=== PATIENT | female | born 1965 | race Caucasian/White ===

== ENCOUNTER 2017-07-12 20:43 | Emergency (ER) | payer MEDICAID ==
[~2017-07-12] VITALS: Ht 165.1 cm; Wt 64.5 kg
[~2017-07-12 20:43] MED LIST: ALBU8.5H5 INH; CLON2TAB16 PO; FLUT1DIS3 INH; HYDR2TAB29 PO; OMEP20TA62 PO; OXYC20TA2 PO; PANT40TA3 PO; TIOT18CA INH
[2017-07-12 20:47] VITALS: BP 112/65
[2017-07-12] MEDS ORDERED: IBUPROFEN 200 MG TABLET ONE (21:03)
[2017-07-12] MEDS ORDERED: IBUPROFEN 200 MG TABLET PO ONE (21:30)
[2017-07-12] MEDS ORDERED: HYDROcodone/APAP 5/325 TABLET ONE (22:14)
[2017-07-12] MEDS ORDERED: HYDROcodone/APAP 5/325 TABLET PO ONE (22:30)
== END 2017-07-12 22:43 | disposition home or self-care (01) ==
LOC: ED 21:00
DX: S62.367A Nondisplaced fracture of neck of fifth metacarpal bone, left hand, initial encounter for closed fracture (principal); J44.9 Chronic obstructive pulmonary disease, unspecified; W01.0XXA Fall on same level from slipping, tripping and stumbling without subsequent striking against object, initial encounter; Y93.89 Activity, other specified; Y99.8 Other external cause status; Y92.89 Other specified places as the place of occurrence of the external cause
CPT/HCPCS: 29105; 99284

== ENCOUNTER 2017-10-24 16:24 | Inpatient (IN) | payer MEDICAID ==
[~2017-10-24] VITALS: Ht 162.6 cm; Wt 65.1 kg
[2017-10-24] MEDS ORDERED: ACETAMINOPHEN 325 MG TABLET PO ONE (17:00)
[2017-10-24 17:20] LABS: MICROSCOPIC INDICATED
[2017-10-24 17:22] LABS: CULTURE INDICATED? YES
[2017-10-24 17:26] LABS: ALANINE AMINOTRANSFERASE 37 U/L (12-78); ANION GAP 6 mmol/L (5-15); CALCIUM 8.7 mg/dL (8.5-10.1); CHLORIDE 110 mmol/L (98-107); CREATININE 0.59 mg/dL (0.55-1.02)
[2017-10-24 17:30] LABS: BASOPHILS # (AUTO) 0.01 x10^3/uL (0-0.1); BASOPHILS % (AUTO) 0 % (0-1); EOSINOPHILS # (AUTO) 0.15 x10^3/uL (0-0.4); EOSINOPHILS % (AUTO) 5 % (1-7); LYMPHOCYTES # (AUTO) 0.89 x10^3/uL (1-3.4); LYMPHOCYTES % (AUTO) 26 % (22-44); MD SCAN; MEAN CORPUSCULAR HEMOGLOBIN 28.6 pg (27.0-34.8); MEAN CORPUSCULAR HGB CONC 33.5 g/dL (32.4-35.8); MEAN CORPUSCULAR VOLUME 85.3 fL (80-100); MEAN PLATELET VOLUME 9.6 fL (7.4-10.4); MONOCYTES % (AUTO) 12 % (2-9); NEUTROPHILS # (AUTO) 1.93 x10^3/uL (1.8-6.8); NEUTROPHILS % (AUTO) 57 % (42-75); PLATELET COUNT 81 x10^3/uL (130-400); RED BLOOD COUNT 4.39 x10^6/uL (3.82-5.3); RED CELL DISTRIBUTION WIDTH 16.7 % (9.6-15.2)
[2017-10-24 17:31] LABS: ALKALINE PHOSPHATASE 85 U/L (45-117); BILIRUBIN,TOTAL 1.6 mg/dL (0.2-1.0); CREATINE KINASE, TOTAL 135 U/L (26-192); T4 (THYROXINE) 9.8 mcg/dL (4.8-13.9); TOTAL PROTEIN 6.8 g/dL (6.4-8.2); TROPONIN I < 0.015 ng/mL (0.000-0.045)
[2017-10-24] MEDS ORDERED: ACETAMINOPHEN 325 MG TABLET ONE (17:39)
[2017-10-24] MEDS ORDERED: CEFTRIAXONE PMX 1GM/50ML 50 ML IV ONE (18:00)
[2017-10-24] MEDS ORDERED: CEFTRIAXONE PMX 1GM/50ML 50 ML ONE (18:30)
[2017-10-24] MEDS ORDERED: hydrALAzine 20 MG/ML, 1ML IVPush PRN (19:00)
[2017-10-24] MEDS ORDERED: ONDANSETRON ODT 4 MG PO PRN (19:00)
[2017-10-24 19:07] VITALS: BP 108/62
[2017-10-24] MEDS: ACETAMINOPHEN 325 MG TABLET PO PRN (22:42)
[2017-10-25] MEDS ORDERED: ALBUTEROL SULFATE 2.5 MG/3 ML NPPB PRN (01:00)
[2017-10-25 01:32] LABS: AMPHETAMINE SCREEN, URINE Negative (Negative); BARBITURATE SCREEN, URINE Negative (Negative); BENZODIAZEPINE SCREEN, URINE Negative (Negative); CANNABINOID SCREEN, URINE Negative (Negative); COCAINE SCREEN, URINE Negative (Negative); METHADONE SCREEN, URINE Negative (Negative); OPIATE SCREEN, URINE Negative (Negative)
[2017-10-25 02:09] VITALS: BP 110/62
[2017-10-25] MEDS: DIPHENHYDRAMINE 25 MG CAPSULE PO PRN (03:29)
[2017-10-25 07:20] VITALS: BP 97/61
[2017-10-25] MEDS: ACETAMINOPHEN 325 MG TABLET PO PRN (13:12)
[2017-10-25] MEDS ORDERED: GADOBUTROL 7.5 MMOL/7.5 ML PFS ONE (14:04)
[2017-10-25 14:23] VITALS: BP 106/65
[2017-10-25 19:33] VITALS: BP 109/61
[2017-10-25] MEDS: CEFTRIAXONE PMX 1GM/50ML 50 ML IV SCH (21:18)
[2017-10-26 02:00] VITALS: BP 107/66
[2017-10-26 06:49] VITALS: BP 106/51
[2017-10-26 14:25] VITALS: BP 108/66
[2017-10-26] MEDS: OXYcodone IR 5MG TABLET PO PRN ×2 (15:04→20:31)
[2017-10-26 15:19] LABS: INTERNATIONAL NORMALIZED RATIO 1.1 (0.93-1.1); PROTHROMBIN TIME 11.4 Seconds (9.6-11.5)
[2017-10-26] MEDS: METHOCARBAMOL 750 MG TABLET PO SCH ×2 (17:55→20:31)
[2017-10-26 19:50] VITALS: BP 111/63
[2017-10-26] MEDS: DIPHENHYDRAMINE 25 MG CAPSULE PO PRN (20:31)
[2017-10-26] MEDS: CEFTRIAXONE PMX 1GM/50ML 50 ML IV SCH (20:31)
[2017-10-27] VITALS (10 sets, daily range): BP systolic 94–113; BP diastolic 52–64
[2017-10-27] MEDS: OXYcodone IR 5MG TABLET PO PRN ×4 (05:12→19:45)
[2017-10-27] MEDS: METHOCARBAMOL 750 MG TABLET PO SCH ×4 (05:12→21:05)
[2017-10-27] MEDS: METOPROLOL TARTRATE 25 MG TABLET PO SCH ×2 (09:00→16:53)
[2017-10-27 12:45] LABS: MEAN CORPUSCULAR HEMOGLOBIN 28.1 pg (27.0-34.8); MEAN CORPUSCULAR HGB CONC 32.9 g/dL (32.4-35.8); MEAN CORPUSCULAR VOLUME 85.5 fL (80-100); MEAN PLATELET VOLUME 9.3 fL (7.4-10.4); PLATELET COUNT 102 x10^3/uL (130-400); RED BLOOD COUNT 3.58 x10^6/uL (3.82-5.3); RED CELL DISTRIBUTION WIDTH 17.2 % (9.6-15.2)
[2017-10-27 13:13] LABS: BASOPHILS # (AUTO) 0.02 x10^3/uL (0-0.1); BASOPHILS % (AUTO) 1 % (0-1); EOSINOPHILS % (AUTO) 6 % (1-7); LYMPHOCYTES # (AUTO) 0.76 x10^3/uL (1-3.4); LYMPHOCYTES % (AUTO) 22 % (22-44); MD SCAN; MONOCYTES # (AUTO) 0.42 x10^3/uL (0.2-0.8); MONOCYTES % (AUTO) 12 % (2-9); NEUTROPHILS # (AUTO) 2.03 x10^3/uL (1.8-6.8); NEUTROPHILS % (AUTO) 59 % (42-75)
[2017-10-27] MEDS: CEFTRIAXONE PMX 1GM/50ML 50 ML IV SCH (21:05)
[2017-10-28] VITALS (7 sets, daily range): BP systolic 93–101; BP diastolic 50–65
[2017-10-28] MEDS: OXYcodone IR 5MG TABLET PO PRN ×6 (00:14→23:48)
[2017-10-28 05:09] LABS: BASOPHILS # (AUTO) 0.01 x10^3/uL (0-0.1); BASOPHILS % (AUTO) 0 % (0-1); EOSINOPHILS # (AUTO) 0.23 x10^3/uL (0-0.4); EOSINOPHILS % (AUTO) 6 % (1-7); LYMPHOCYTES # (AUTO) 0.72 x10^3/uL (1-3.4); LYMPHOCYTES % (AUTO) 19 % (22-44); MD NO; MEAN CORPUSCULAR HEMOGLOBIN 27.8 pg (27.0-34.8); MEAN CORPUSCULAR HGB CONC 32.7 g/dL (32.4-35.8); MEAN CORPUSCULAR VOLUME 84.9 fL (80-100); MEAN PLATELET VOLUME 8.7 fL (7.4-10.4); MONOCYTES # (AUTO) 0.44 x10^3/uL (0.2-0.8); MONOCYTES % (AUTO) 12 % (2-9); NEUTROPHILS % (AUTO) 63 % (42-75); PLATELET COUNT 115 x10^3/uL (130-400); RED BLOOD COUNT 3.92 x10^6/uL (3.82-5.3); RED CELL DISTRIBUTION WIDTH 17.1 % (9.6-15.2)
[2017-10-28] MEDS: METOPROLOL TARTRATE 25 MG TABLET PO SCH ×2 (05:18→17:53)
[2017-10-28] MEDS: METHOCARBAMOL 750 MG TABLET PO SCH ×4 (05:18→20:00)
[2017-10-28 05:27] LABS: ALBUMIN 3.1 g/dL (3.4-5.0); ANION GAP 8 mmol/L (5-15); CALCIUM 8.6 mg/dL (8.5-10.1); CHLORIDE 109 mmol/L (98-107)
[2017-10-28 05:32] LABS: ALANINE AMINOTRANSFERASE 35 U/L (12-78); ALKALINE PHOSPHATASE 103 U/L (45-117); BILIRUBIN,TOTAL 1.1 mg/dL (0.2-1.0); CREATININE 0.56 mg/dL (0.55-1.02); TOTAL PROTEIN 6.9 g/dL (6.4-8.2)
[2017-10-29] VITALS (9 sets, daily range): BP systolic 87–116; BP diastolic 42–68
[2017-10-29] MEDS: OXYcodone IR 5MG TABLET PO PRN ×4 (05:43→20:06)
[2017-10-29 05:48] LABS: MEAN CORPUSCULAR HEMOGLOBIN 28.4 pg (27.0-34.8); MEAN CORPUSCULAR HGB CONC 33.4 g/dL (32.4-35.8); MEAN CORPUSCULAR VOLUME 85.1 fL (80-100); MEAN PLATELET VOLUME 9.4 fL (7.4-10.4); PLATELET COUNT 99 x10^3/uL (130-400); RED CELL DISTRIBUTION WIDTH 16.7 % (9.6-15.2)
[2017-10-29] MEDS: METOPROLOL TARTRATE 25 MG TABLET PO SCH ×2 (05:49→17:25)
[2017-10-29] MEDS: METHOCARBAMOL 750 MG TABLET PO SCH ×4 (05:49→20:06)
[2017-10-29 05:52] LABS: ALBUMIN 2.7 g/dL (3.4-5.0); ANION GAP 7 mmol/L (5-15); CALCIUM 8.1 mg/dL (8.5-10.1); CHLORIDE 110 mmol/L (98-107)
[2017-10-29 05:55] LABS: ALANINE AMINOTRANSFERASE 34 U/L (12-78); ALKALINE PHOSPHATASE 98 U/L (45-117); BILIRUBIN,TOTAL 1.1 mg/dL (0.2-1.0); CREATININE 0.52 mg/dL (0.55-1.02); TOTAL PROTEIN 6.1 g/dL (6.4-8.2)
[2017-10-29 06:14] LABS: BASOPHILS # (AUTO) 0.01 x10^3/uL (0-0.1); BASOPHILS % (AUTO) 1 % (0-1); EOSINOPHILS % (AUTO) 8 % (1-7); LYMPHOCYTES # (AUTO) 0.55 x10^3/uL (1-3.4); LYMPHOCYTES % (AUTO) 22 % (22-44); MD SCAN; MONOCYTES # (AUTO) 0.36 x10^3/uL (0.2-0.8); MONOCYTES % (AUTO) 14 % (2-9); NEUTROPHILS # (AUTO) 1.37 x10^3/uL (1.8-6.8); NEUTROPHILS % (AUTO) 55 % (42-75)
[2017-10-30] VITALS (13 sets, daily range): BP systolic 94–127; BP diastolic 50–79
[2017-10-30] MEDS: OXYcodone IR 5MG TABLET PO PRN ×4 (00:34→13:07)
[2017-10-30 03:14] LABS: BASOPHILS # (AUTO) 0.01 x10^3/uL (0-0.1); BASOPHILS % (AUTO) 0 % (0-1); EOSINOPHILS % (AUTO) 6 % (1-7); LYMPHOCYTES # (AUTO) 0.71 x10^3/uL (1-3.4); LYMPHOCYTES % (AUTO) 21 % (22-44); MD NO; MEAN CORPUSCULAR HGB CONC 34.1 g/dL (32.4-35.8); MEAN CORPUSCULAR VOLUME 84.9 fL (80-100); MEAN PLATELET VOLUME 8.6 fL (7.4-10.4); MONOCYTES # (AUTO) 0.42 x10^3/uL (0.2-0.8); MONOCYTES % (AUTO) 13 % (2-9); NEUTROPHILS # (AUTO) 1.99 x10^3/uL (1.8-6.8); NEUTROPHILS % (AUTO) 60 % (42-75); PLATELET COUNT 119 x10^3/uL (130-400); RED BLOOD COUNT 3.42 x10^6/uL (3.82-5.3)
[2017-10-30 05:22] LABS: BASOPHILS # (AUTO) 0.02 x10^3/uL (0-0.1); BASOPHILS % (AUTO) 1 % (0-1); EOSINOPHILS # (AUTO) 0.21 x10^3/uL (0-0.4); EOSINOPHILS % (AUTO) 7 % (1-7); LYMPHOCYTES # (AUTO) 0.69 x10^3/uL (1-3.4); LYMPHOCYTES % (AUTO) 23 % (22-44); MD NO; MEAN CORPUSCULAR HGB CONC 34.5 g/dL (32.4-35.8); MEAN CORPUSCULAR VOLUME 84.3 fL (80-100); MEAN PLATELET VOLUME 8.3 fL (7.4-10.4); MONOCYTES # (AUTO) 0.38 x10^3/uL (0.2-0.8); MONOCYTES % (AUTO) 12 % (2-9); NEUTROPHILS # (AUTO) 1.76 x10^3/uL (1.8-6.8); NEUTROPHILS % (AUTO) 58 % (42-75); PLATELET COUNT 113 x10^3/uL (130-400); RED BLOOD COUNT 3.44 x10^6/uL (3.82-5.3); RED CELL DISTRIBUTION WIDTH 17.1 % (9.6-15.2)
[2017-10-30 05:32] LABS: CHLORIDE 109 mmol/L (98-107)
[2017-10-30 05:40] LABS: ALANINE AMINOTRANSFERASE 39 U/L (12-78); ALKALINE PHOSPHATASE 102 U/L (45-117); ANION GAP 7 mmol/L (5-15); BILIRUBIN,TOTAL 1.6 mg/dL (0.2-1.0); CALCIUM 8.3 mg/dL (8.5-10.1); TOTAL PROTEIN 6.6 g/dL (6.4-8.2)
[2017-10-30] MEDS: METOPROLOL TARTRATE 25 MG TABLET PO SCH ×2 (06:04→18:00)
[2017-10-30] MEDS: METHOCARBAMOL 750 MG TABLET PO SCH ×4 (06:04→22:11)
[2017-10-30] MEDS ORDERED: PHARMACY MAY ADJ FOR RENAL FX MC PRN (08:00)
[2017-10-30] MEDS: OXYcodone/APAP 5/325MG TABLET PO PRN (14:45)
[2017-10-30] MEDS ORDERED: CYCLOBENZAPRINE 10 MG TABLET PO PRN ×2 (15:00→18:00)
[2017-10-30] MEDS ORDERED: LABETALOL 5MG/ML, 20ML IVPush PRN ×2 (15:00→18:00)
[2017-10-30] MEDS ORDERED: HYDROcodone/APAP 5/325 TABLET PO PRN ×2 (15:00→18:00)
[2017-10-30] MEDS ORDERED: PROPOFOL 100 ML ONE (16:26)
[2017-10-30] MEDS ORDERED: FENTANYL PF 250 MCG/5ML ONE (16:29)
[2017-10-30] MEDS ORDERED: BUPIVACAINE/PF 0.5% ONE (16:42)
[2017-10-30] MEDS ORDERED: THROMBIN 5,000 UNIT VIAL TP ONE (16:42)
[2017-10-30] MEDS ORDERED: BACITRACIN 50,000 UNIT ONE (16:42)
[2017-10-30] MEDS ORDERED: EPINEPHRINE 1 MG/ML, 1ML ONE (16:42)
[2017-10-30] MEDS ORDERED: FAMOTIDINE 20 MG TABLET ONE (16:43)
[2017-10-30] MEDS ORDERED: ONDANSETRON ODT 8 MG ONE (16:43)
[2017-10-30] MEDS ORDERED: GABAPENTIN 300 MG CAPSULE ONE (16:43)
[2017-10-30] MEDS ORDERED: OxyconTIN ER 10 MG TAB.ER ONE (16:43)
[2017-10-30] MEDS ORDERED: EPHEDRINE 50 MG/ML, 1ML ONE (17:15)
[2017-10-30] MEDS ORDERED: DEXAMETHASONE 4 MG/ML, 1ML ONE ×3 (17:22→17:23)
[2017-10-30] MEDS ORDERED: CEFAZOLIN 1,000 MG ONE ×2 (17:27)
[2017-10-30] MEDS ORDERED: OXYcodone/APAP 5/325MG TABLET PO PRN (18:00)
[2017-10-30] MEDS ORDERED: ROCURONIUM 10MG/ML,5ML ONE (18:03)
[2017-10-30] MEDS ORDERED: METOPROLOL 1 MG/ML, 5ML ONE (18:03)
[2017-10-30] MEDS ORDERED: PROPOFOL 10 MG/ML, 20ML ONE ×2 (18:03→18:26)
[2017-10-30] MEDS ORDERED: METOCLOPRAMIDE 5 MG/ML, 2ML ONE (19:55)
[2017-10-30] MEDS ORDERED: FENTANYL PF 100 MCG/2ML IV PRN (20:30)
[2017-10-30] MEDS ORDERED: ONDANSETRON ODT 8 MG PO PRN (20:30)
[2017-10-30] MEDS ORDERED: OXYcodone 5 MG/5 ML ORAL.SOL UDC PO PRN (20:30)
[2017-10-30] MEDS ORDERED: MORPHINE SULFATE 4 MG/ML, 1ML IVPush PRN (20:30)
[2017-10-30] MEDS ORDERED: hydrALAzine 20 MG/ML, 1ML IV PRN (20:30)
[2017-10-30] MEDS ORDERED: LABETALOL 5MG/ML, 20ML IV PRN (20:30)
[2017-10-30] MEDS ORDERED: PROMETHAZINE 25 MG/ML, 1ML IV PRN (20:30)
[2017-10-30] MEDS ORDERED: HYDROmorphone 1 MG/ML, 1ML IV PRN (20:30)
[2017-10-30] MEDS ORDERED: MEPERIDINE/PF 25MG/0.5ML IVPush PRN (20:30)
[2017-10-30] MEDS ORDERED: FENTANYL PF 100 MCG/2ML ONE (20:31)
[2017-10-30] MEDS ORDERED: METHOCARBAMOL 750 MG TABLET ONE (20:31)
[2017-10-30] MEDS ORDERED: OXYcodone 5 MG/5 ML ORAL.SOL UDC ONE (22:03)
[2017-10-30] MEDS: DEXAMETHASONE 4 MG/ML, 1ML IVPush SCH (23:38)
[2017-10-31] MEDS: NS + 20MEQ KCL 1,000 ML IV SCH ×3 (00:33→20:40)
[2017-10-31] MEDS: CEFAZOLIN PMX 1GM/50ML 50 ML IVPB SCH ×2 (01:21→09:40)
[2017-10-31 03:46] VITALS: BP 101/58
[2017-10-31] MEDS: DEXAMETHASONE 4 MG/ML, 1ML IVPush SCH ×3 (05:03→23:02)
[2017-10-31 05:05] LABS: MEAN CORPUSCULAR HEMOGLOBIN 28.4 pg (27.0-34.8); MEAN CORPUSCULAR HGB CONC 33.4 g/dL (32.4-35.8); MEAN CORPUSCULAR VOLUME 84.9 fL (80-100); RED BLOOD COUNT 3.36 x10^6/uL (3.82-5.3); RED CELL DISTRIBUTION WIDTH 16.8 % (9.6-15.2)
[2017-10-31 05:06] LABS: ALBUMIN 2.8 g/dL (3.4-5.0); ANION GAP 7 mmol/L (5-15); CALCIUM 8.2 mg/dL (8.5-10.1); CHLORIDE 111 mmol/L (98-107); CREATININE 0.55 mg/dL (0.55-1.02)
[2017-10-31 05:31] VITALS: BP 98/56
[2017-10-31] MEDS: METHOCARBAMOL 750 MG TABLET PO SCH ×4 (05:31→23:02)
[2017-10-31] MEDS: METOPROLOL TARTRATE 25 MG TABLET PO SCH ×2 (05:32→18:31)
[2017-10-31 05:46] LABS: MD YES; MEAN PLATELET VOLUME 9.4 fL (7.4-10.4); PLATELET COUNT 96 x10^3/uL (130-400)
[2017-10-31 05:49] LABS: BAND#(MANUAL) 0.02 x10^3/uL; BANDS%(MANUAL) 1 % (0-7); BASOS#(MANUAL) 0.02 x10^3/uL (0-0.1); BASOS% (MANUAL) 1 % (0-1); LYMPH#(MANUAL) 0.18 x10^3/uL (1-3.4); LYMPHS% (MANUAL) 10 % (22-44); SEG#(MANUAL) 1.58 x10^3/uL (1.8-6.8); SEGS% (MANUAL) 88 % (42-75)
[2017-10-31 05:50] LABS: <PLATELET ESTIMATE> DECREASED; <PLT MORPHOLOGY> NORMAL PLT MORPH; ANISOCYTOSIS 1+
[2017-10-31 08:29] VITALS: BP 108/65
[2017-10-31] MEDS ORDERED: CEFAZOLIN PMX 1GM/50ML 50 ML ONE (09:36)
[2017-10-31] MEDS: OXYcodone/APAP 5/325MG TABLET PO PRN ×4 (09:40→23:02)
[2017-10-31 12:28] VITALS: BP 103/52
[2017-10-31] MEDS ORDERED: LORazepam 2 MG/ML, 1ML IVPush ONE (18:30)
[2017-10-31 18:38] VITALS: BP 126/62
[2017-10-31 21:08] LABS: MICROSCOPIC NOT IND
[2017-10-31 21:13] LABS: CULTURE INDICATED? NO
[2017-11-01 02:58] VITALS: BP 104/60
[2017-11-01] MEDS: OXYcodone/APAP 5/325MG TABLET PO PRN ×5 (03:14→21:26)
[2017-11-01 05:26] LABS: ALANINE AMINOTRANSFERASE 33 U/L (12-78); ANION GAP 6 mmol/L (5-15); CALCIUM 8.7 mg/dL (8.5-10.1); CHLORIDE 110 mmol/L (98-107)
[2017-11-01 05:29] LABS: ALKALINE PHOSPHATASE 81 U/L (45-117); BILIRUBIN,TOTAL 1.3 mg/dL (0.2-1.0); TOTAL PROTEIN 6.8 g/dL (6.4-8.2)
[2017-11-01 05:37] LABS: MEAN CORPUSCULAR HEMOGLOBIN 28.2 pg (27.0-34.8); MEAN CORPUSCULAR HGB CONC 32.7 g/dL (32.4-35.8); MEAN CORPUSCULAR VOLUME 86.3 fL (80-100); MEAN PLATELET VOLUME 10.7 fL (7.4-10.4); PLATELET COUNT 93 x10^3/uL (130-400); RED BLOOD COUNT 3.36 x10^6/uL (3.82-5.3); RED CELL DISTRIBUTION WIDTH 16.7 % (9.6-15.2)
[2017-11-01 06:12] LABS: BASOPHILS % (AUTO) 0 % (0-1); EOSINOPHILS % (AUTO) 0 % (1-7); LYMPHOCYTES # (AUTO) 0.44 x10^3/uL (1-3.4); LYMPHOCYTES % (AUTO) 8 % (22-44); MD SCAN; MONOCYTES # (AUTO) 0.25 x10^3/uL (0.2-0.8); MONOCYTES % (AUTO) 4 % (2-9); NEUTROPHILS # (AUTO) 4.91 x10^3/uL (1.8-6.8); NEUTROPHILS % (AUTO) 88 % (42-75)
[2017-11-01 06:52] VITALS: BP 115/65
[2017-11-01] MEDS: METOPROLOL TARTRATE 25 MG TABLET PO SCH ×2 (07:17→16:42)
[2017-11-01] MEDS: METHOCARBAMOL 750 MG TABLET PO SCH ×5 (07:18→21:26)
[2017-11-01] MEDS: DEXAMETHASONE 4 MG/ML, 1ML IVPush SCH (07:43)
[2017-11-01] MEDS: NS + 20MEQ KCL 1,000 ML IV SCH (10:00)
[2017-11-01 12:44] VITALS: BP 115/64
[2017-11-01 16:40] VITALS: BP 118/66
[2017-11-01 20:38] VITALS: BP 99/57
[2017-11-02 01:14] VITALS: BP 114/67
[2017-11-02] MEDS: OXYcodone/APAP 5/325MG TABLET PO PRN ×5 (01:45→20:41)
[2017-11-02 04:59] LABS: BASOPHILS % (AUTO) 0 % (0-1); EOSINOPHILS % (AUTO) 0 % (1-7); LYMPHOCYTES # (AUTO) 0.95 x10^3/uL (1-3.4); LYMPHOCYTES % (AUTO) 10 % (22-44); MD NO; MEAN CORPUSCULAR HEMOGLOBIN 28.4 pg (27.0-34.8); MEAN CORPUSCULAR HGB CONC 33.2 g/dL (32.4-35.8); MEAN CORPUSCULAR VOLUME 85.7 fL (80-100); MEAN PLATELET VOLUME 10.4 fL (7.4-10.4); MONOCYTES # (AUTO) 1.09 x10^3/uL (0.2-0.8); MONOCYTES % (AUTO) 11 % (2-9); NEUTROPHILS # (AUTO) 7.95 x10^3/uL (1.8-6.8); NEUTROPHILS % (AUTO) 80 % (42-75); PLATELET COUNT 123 x10^3/uL (130-400); RED BLOOD COUNT 3.61 x10^6/uL (3.82-5.3); RED CELL DISTRIBUTION WIDTH 16.7 % (9.6-15.2)
[2017-11-02 05:04] LABS: ALANINE AMINOTRANSFERASE 30 U/L (12-78); ANION GAP 7 mmol/L (5-15); CALCIUM 8.8 mg/dL (8.5-10.1); CHLORIDE 106 mmol/L (98-107); CREATININE 0.62 mg/dL (0.55-1.02)
[2017-11-02 05:06] LABS: ALKALINE PHOSPHATASE 93 U/L (45-117); BILIRUBIN,TOTAL 0.8 mg/dL (0.2-1.0); TOTAL PROTEIN 6.7 g/dL (6.4-8.2)
[2017-11-02 05:43] VITALS: BP 97/58
[2017-11-02] MEDS: METHOCARBAMOL 750 MG TABLET PO SCH ×4 (05:45→20:41)
[2017-11-02] MEDS: METOPROLOL TARTRATE 25 MG TABLET PO SCH ×2 (05:47→16:28)
[2017-11-02 07:15] VITALS: BP 92/65
[2017-11-02] MEDS ORDERED: POTASSIUM PHOSPHATE 44 MEQ in SODIUM CHLORIDE 0.9% 500 ML IV ONE (09:00)
[2017-11-02] MEDS ORDERED: MAGNESIUM SULFATE PMX 2GM/50ML 50 ML IV ONE (09:00)
[2017-11-02] MEDS: DOCUSATE 100 MG CAPSULE PO PRN (10:07)
[2017-11-02 13:32] VITALS: BP 97/59
[2017-11-02] MEDS ORDERED: POLYETHYLENE GLYCOL 17 GM PACKET PO PRN (14:00)
[2017-11-02 16:28] VITALS: BP 95/59
[2017-11-02 20:32] VITALS: BP 95/51
[2017-11-03] MEDS: OXYcodone/APAP 5/325MG TABLET PO PRN ×5 (01:14→20:35)
[2017-11-03 02:45] VITALS: BP 99/52
[2017-11-03 05:39] LABS: CHLORIDE 106 mmol/L (98-107)
[2017-11-03 05:56] LABS: ALANINE AMINOTRANSFERASE 28 U/L (12-78); ALBUMIN 2.8 g/dL (3.4-5.0); ALKALINE PHOSPHATASE 94 U/L (45-117); ANION GAP 8 mmol/L (5-15); CALCIUM 8.3 mg/dL (8.5-10.1); TOTAL PROTEIN 6.1 g/dL (6.4-8.2)
[2017-11-03] MEDS: METOPROLOL TARTRATE 25 MG TABLET PO SCH ×2 (06:00→17:05)
[2017-11-03] MEDS: METHOCARBAMOL 750 MG TABLET PO SCH ×4 (07:03→21:26)
[2017-11-03] MEDS: POLYETHYLENE GLYCOL 17 GM PACKET PO SCH (07:04)
[2017-11-03 07:10] VITALS: BP 117/67
[2017-11-03 07:20] LABS: MD YES; MEAN CORPUSCULAR HEMOGLOBIN 28.6 pg (27.0-34.8); MEAN CORPUSCULAR HGB CONC 33.7 g/dL (32.4-35.8); MEAN CORPUSCULAR VOLUME 84.8 fL (80-100); MEAN PLATELET VOLUME 10.7 fL (7.4-10.4); PLATELET COUNT 74 x10^3/uL (130-400); RED CELL DISTRIBUTION WIDTH 17.1 % (9.6-15.2)
[2017-11-03 07:25] LABS: BAND#(MANUAL) 0.12 x10^3/uL; BANDS%(MANUAL) 3 % (0-7); LYMPH#(MANUAL) 0.31 x10^3/uL (1-3.4); LYMPHS% (MANUAL) 8 % (22-44); MONOS#(MANUAL) 0.47 x10^3/uL (0.3-2.7); MONOS% (MANUAL) 12 % (2-9); REACTIVE LYMPHS # (MANUAL) 0.04 x10^3/uL (0-0); REACTIVE LYMPHS % (MANUAL) 1 % (0-0); SEG#(MANUAL) 2.96 x10^3/uL (1.8-6.8); SEGS% (MANUAL) 76 % (42-75)
[2017-11-03 07:26] LABS: ANISOCYTOSIS 1+
[2017-11-03 07:28] LABS: <PLATELET ESTIMATE> DECREASED; LARGE PLATELETS 1+
[2017-11-03 13:30] VITALS: BP 105/55
[2017-11-03 17:00] VITALS: BP 99/61
[2017-11-03 19:12] VITALS: BP 104/64
[2017-11-04] MEDS: OXYcodone/APAP 5/325MG TABLET PO PRN ×5 (00:33→20:05)
[2017-11-04 01:17] VITALS: BP 107/62
[2017-11-04] MEDS: METOPROLOL TARTRATE 25 MG TABLET PO SCH ×2 (06:05→17:27)
[2017-11-04] MEDS: METHOCARBAMOL 750 MG TABLET PO SCH ×4 (06:06→20:29)
[2017-11-04 06:34] LABS: BASOPHILS # (AUTO) 0.01 x10^3/uL (0-0.1); BASOPHILS % (AUTO) 0 % (0-1); EOSINOPHILS # (AUTO) 0.21 x10^3/uL (0-0.4); EOSINOPHILS % (AUTO) 7 % (1-7); LYMPHOCYTES # (AUTO) 0.59 x10^3/uL (1-3.4); LYMPHOCYTES % (AUTO) 21 % (22-44); MD SCAN; MEAN CORPUSCULAR HEMOGLOBIN 28.3 pg (27.0-34.8); MEAN CORPUSCULAR HGB CONC 33.4 g/dL (32.4-35.8); MEAN CORPUSCULAR VOLUME 84.8 fL (80-100); MEAN PLATELET VOLUME 10.4 fL (7.4-10.4); MONOCYTES # (AUTO) 0.48 x10^3/uL (0.2-0.8); MONOCYTES % (AUTO) 17 % (2-9); NEUTROPHILS # (AUTO) 1.58 x10^3/uL (1.8-6.8); NEUTROPHILS % (AUTO) 55 % (42-75); PLATELET COUNT 67 x10^3/uL (130-400); RED BLOOD COUNT 3.31 x10^6/uL (3.82-5.3); RED CELL DISTRIBUTION WIDTH 16.4 % (9.6-15.2)
[2017-11-04 07:50] VITALS: BP 94/57
[2017-11-04] MEDS ORDERED: POLY17PO5 PO (08:03)
[2017-11-04] MEDS ORDERED: HYDR-3240 PO (08:03)
[2017-11-04] MEDS ORDERED: CYCL-259 PO (08:03)
[2017-11-04] MEDS ORDERED: FOLI-17 PO (08:05)
[2017-11-04] MEDS ORDERED: MULT-412 PO (08:05)
[2017-11-04] MEDS ORDERED: MAGN400T26 PO (08:05)
[2017-11-04] MEDS ORDERED: THIA100T10 PO (08:05)
[2017-11-04] MEDS: POLYETHYLENE GLYCOL 17 GM PACKET PO SCH (09:00)
[2017-11-04] MEDS: DOCUSATE 100 MG CAPSULE PO PRN (09:51)
[2017-11-04] MEDS ORDERED: PNEUMOCOCCAL 23 VACCINE IM-VACC ONE (10:30)
[2017-11-04 14:30] VITALS: BP 110/72
[2017-11-04 19:20] VITALS: BP 111/70
[2017-11-05 02:15] VITALS: BP 131/71
[2017-11-05] MEDS: OXYcodone/APAP 5/325MG TABLET PO PRN ×3 (02:17→11:14)
[2017-11-05] MEDS: DIPHENHYDRAMINE 25 MG CAPSULE PO PRN (02:17)
[2017-11-05 04:53] LABS: MEAN CORPUSCULAR HEMOGLOBIN 28.1 pg (27.0-34.8); MEAN CORPUSCULAR HGB CONC 33.1 g/dL (32.4-35.8); MEAN CORPUSCULAR VOLUME 84.8 fL (80-100); MEAN PLATELET VOLUME 10.3 fL (7.4-10.4); PLATELET COUNT 75 x10^3/uL (130-400); RED CELL DISTRIBUTION WIDTH 16.7 % (9.6-15.2)
[2017-11-05] MEDS: METHOCARBAMOL 750 MG TABLET PO SCH ×2 (05:14→11:14)
[2017-11-05] MEDS: METOPROLOL TARTRATE 25 MG TABLET PO SCH (05:14)
[2017-11-05 06:03] LABS: BASOPHILS # (AUTO) 0.01 x10^3/uL (0-0.1); BASOPHILS % (AUTO) 0 % (0-1); EOSINOPHILS % (AUTO) 5 % (1-7); LYMPHOCYTES # (AUTO) 0.65 x10^3/uL (1-3.4); LYMPHOCYTES % (AUTO) 17 % (22-44); MD SCAN; MONOCYTES # (AUTO) 0.62 x10^3/uL (0.2-0.8); MONOCYTES % (AUTO) 16 % (2-9); NEUTROPHILS % (AUTO) 61 % (42-75)
[2017-11-05 07:24] VITALS: BP 94/58
[2017-11-05] MEDS: POLYETHYLENE GLYCOL 17 GM PACKET PO SCH (09:00)
== END 2017-11-05 13:00 | DRG 471 ==
LOC: ED 17:58 → EDIP 17:59 → ED 18:03 → 3NE 18:51 → 4NOR 10-30 22:43
PROVIDERS: ADMIT Hospitalist; ATTEND Internal Medicine
PROC: 0T9B70Z Drainage of Bladder with Drainage Device, Via Natural or Artificial Opening (ICD-10-PCS; 2017-10-24)
PROC: 6A550Z2 Pheresis of Platelets, Single (ICD-10-PCS; 2017-10-27)
PROC: 0RG20A0 Fusion of 2 or more Cervical Vertebral Joints with Interbody Fusion Device, Anterior Approach, Anterior Column, Open Approach (ICD-10-PCS; 2017-10-30)
PROC: 0RS104Z Reposition Cervical Vertebral Joint with Internal Fixation Device, Open Approach (ICD-10-PCS; 2017-10-30)
PROC: 4A11X4G Monitoring of Peripheral Nervous Electrical Activity, Intraoperative, External Approach (ICD-10-PCS; 2017-10-30)
PROC: 0RB30ZZ Excision of Cervical Vertebral Disc, Open Approach (ICD-10-PCS; principal; 2017-10-30 17:00)
DX: M48.02 Spinal stenosis, cervical region (principal); E43 Unspecified severe protein-calorie malnutrition; D61.818 Other pancytopenia; N30.00 Acute cystitis without hematuria; G62.9 Polyneuropathy, unspecified; S13.170A Subluxation of C6/C7 cervical vertebrae, initial encounter; S13.140A Subluxation of C3/C4 cervical vertebrae, initial encounter; S13.150A Subluxation of C4/C5 cervical vertebrae, initial encounter; W18.11XA Fall from or off toilet without subsequent striking against object, initial encounter; F17.210 Nicotine dependence, cigarettes, uncomplicated; B19.20 Unspecified viral hepatitis C without hepatic coma; F10.20 Alcohol dependence, uncomplicated; I70.0 Atherosclerosis of aorta; R29.6 Repeated falls; F12.20 Cannabis dependence, uncomplicated; G89.29 Other chronic pain; J44.9 Chronic obstructive pulmonary disease, unspecified; M43.10 Spondylolisthesis, site unspecified; Z82.5 Family history of asthma and other chronic lower respiratory diseases; Z83.3 Family history of diabetes mellitus; Z91.81 History of falling; Z68.24 Body mass index [BMI] 24.0-24.9, adult; Z88.1 Allergy status to other antibiotic agents; Y93.89 Activity, other specified; Y92.89 Other specified places as the place of occurrence of the external cause; Y99.8 Other external cause status
CPT/HCPCS: 36415; 72040; 72050; 72156; 80048; 80053; 80307; 81001; 81003; 82040; 82550; 82553; 83605; 83735; 84100; 84436; 84443; 84484; 85025; 85049; 85610; 86850; 86900; 87040; 87086; 90732; 93005; 93306; 95938; 95941; 96374; A9585; C1713; J0171; J0690; J0696; J1100; J2270; J2704; J3010; J3480; J3490; Q0162; C1762; J2060; J2765; J3475; J7040; P9035; Q0163

== ENCOUNTER 2018-01-14 10:26 | Inpatient (IN) | payer MEDICAID ==
[~2018-01-14] VITALS: Ht 165.1 cm; Wt 74.6 kg
[~2018-01-14 10:26] MED LIST changes: +ACET325T14 PO; +CEPH-376 PO; +CYCL-259 PO; +DIAZ5TAB4 PO; +ERGO500017 PO; +FOLI-17 PO; +GABA300C10 PO; +HYDR-3240 PO; +MAGN400T26 PO; +METH750T2 PO; +MULT-412 PO; +OXYC-432 PO; +POLY17PO5 PO; +SENN1TAB7 PO; +THIA100T10 PO
[2018-01-14] MEDS ORDERED: OXYC-302 PO (10:56)
[2018-01-14] MEDS ORDERED: PHARMACOKINETIC CONSULTATION MC ONE (11:00)
[2018-01-14] MEDS ORDERED: SODIUM CHLORIDE FLUSH 10ML SYR IVF ONE (11:00)
[2018-01-14] MEDS ORDERED: VANCOMYCIN PER PHARMACY MC ONE (11:00)
[2018-01-14 11:27] LABS: MEAN CORPUSCULAR HEMOGLOBIN 29.5 pg (27.0-34.8); MEAN CORPUSCULAR HGB CONC 33.8 g/dL (32.4-35.8); MEAN CORPUSCULAR VOLUME 87.5 fL (80-100); RED BLOOD COUNT 3.23 x10^6/uL (3.82-5.3); RED CELL DISTRIBUTION WIDTH 16.7 % (9.6-15.2)
[2018-01-14] MEDS ORDERED: VANCOMYCIN 1,400 MG in SODIUM CHLORIDE 0.9% 250 ML IV ONE (11:30)
[2018-01-14 11:38] LABS: ALBUMIN 2.6 g/dL (3.4-5.0); ANION GAP 7 mmol/L (5-15); CALCIUM 7.9 mg/dL (8.5-10.1); CHLORIDE 104 mmol/L (98-107)
[2018-01-14 11:40] LABS: ALANINE AMINOTRANSFERASE 20 U/L (12-78); ALKALINE PHOSPHATASE 62 U/L (45-117); BILIRUBIN,TOTAL 2.5 mg/dL (0.2-1.0); CREATININE 0.44 mg/dL (0.55-1.02); TOTAL PROTEIN 6.5 g/dL (6.4-8.2)
[2018-01-14 11:42] LABS: INTERNATIONAL NORMALIZED RATIO 1.17 (0.93-1.1)
[2018-01-14] MEDS ORDERED: GADOBUTROL 7.5 MMOL/7.5 ML PFS ONE (11:45)
[2018-01-14 11:55] LABS: MD YES; PLATELET COUNT 96 x10^3/uL (130-400)
[2018-01-14 12:03] LABS: BANDS%(MANUAL) 4 % (0-7); LYMPHS% (MANUAL) 4 % (22-44); MONOS% (MANUAL) 8 % (2-9); SEGS% (MANUAL) 84 % (42-75)
[2018-01-14 12:04] LABS: <PLATELET ESTIMATE> DECREASED; <PLT MORPHOLOGY> NORMAL PLT MORPH; <RBC MORPHOLOGY> NORMAL
[2018-01-14] MEDS ORDERED: hydrALAzine 20 MG/ML, 1ML IVPush PRN (13:30)
[2018-01-14] MEDS: NICOTINE 14MG/24 HR PATCH.TD24 TD SCH (13:30)
[2018-01-14] MEDS ORDERED: ONDANSETRON 2MG/ML, 2ML IVPush PRN (13:30)
[2018-01-14] MEDS ORDERED: morphine SULFATE 10 MG/ML, 1ML IVPush PRN (13:30)
[2018-01-14 13:42] LABS: HCT (SEDRATE) 28.3 % (34.6-47.8)
[2018-01-14 13:52] LABS: MICROSCOPIC INDICATED
[2018-01-14 14:22] LABS: CULTURE INDICATED? NO
[2018-01-14 14:25] VITALS: BP 117/64
[2018-01-14] MEDS: SODIUM CHLORIDE 0.9% 1,000 ML IV SCH (14:52)
[2018-01-14] MEDS ORDERED: FENTANYL PF 250 MCG/5ML ONE (18:24)
[2018-01-14] MEDS ORDERED: MIDAZOLAM 1 MG/ML, 2ML ONE (18:24)
[2018-01-14] MEDS ORDERED: BUPIVACAINE/PF-EPI 0.5% 1:200K ONE (18:30)
[2018-01-14] MEDS ORDERED: METHYLENE BLUE 10 MG/ML 10ML ONE (18:30)
[2018-01-14] MEDS ORDERED: THROMBIN 5,000 UNIT VIAL TP ONE (18:31)
[2018-01-14] MEDS ORDERED: BACITRACIN 50,000 UNIT ONE (18:31)
[2018-01-14] MEDS ORDERED: VANCOMYCIN 1,000 MG ONE (18:36)
[2018-01-14] MEDS ORDERED: DEXAMETHASONE 4 MG/ML, 1ML ONE (18:52)
[2018-01-14] MEDS ORDERED: CEFAZOLIN 1,000 MG ONE ×2 (18:59)
[2018-01-14] MEDS ORDERED: ROCURONIUM 10MG/ML,5ML ONE (19:00)
[2018-01-14] MEDS ORDERED: PROPOFOL 10 MG/ML, 20ML ONE (19:00)
[2018-01-14] MEDS ORDERED: ONDANSETRON 2MG/ML, 2ML ONE (19:15)
[2018-01-14] MEDS ORDERED: OXYcodone 5 MG/5 ML ORAL.SOL UDC PO PRN (19:30)
[2018-01-14] MEDS ORDERED: DIAZEPAM 5 MG/ML, 2ML IVPush PRN (19:30)
[2018-01-14] MEDS ORDERED: LABETALOL 5MG/ML, 20ML IV PRN (19:30)
[2018-01-14] MEDS ORDERED: hydrALAzine 20 MG/ML, 1ML IV PRN (19:30)
[2018-01-14] MEDS ORDERED: HYDROmorphone 1 MG/ML, 1ML IV PRN (19:30)
[2018-01-14] MEDS ORDERED: MIDAZOLAM 1 MG/ML, 2ML IV PRN (19:30)
[2018-01-14] MEDS ORDERED: ONDANSETRON 2MG/ML, 2ML IV PRN (19:30)
[2018-01-14] MEDS ORDERED: PROMETHAZINE 25 MG/ML, 1ML IV PRN (19:30)
[2018-01-14] MEDS ORDERED: MEPERIDINE/PF 25MG/0.5ML IVPush PRN (19:30)
[2018-01-14] MEDS ORDERED: FENTANYL PF 100 MCG/2ML IV PRN (19:30)
[2018-01-14] MEDS ORDERED: BACITRACIN OINT 500U/GM, 15 GM ONE (19:33)
[2018-01-14] MEDS ORDERED: MEPERIDINE/PF 50 MG/ML ONE (20:03)
[2018-01-14] MEDS ORDERED: OXYcodone 5 MG/5 ML ORAL.SOL UDC ONE (20:09)
[2018-01-14] MEDS ORDERED: FENTANYL PF 100 MCG/2ML ONE (20:09)
[2018-01-14] MEDS ORDERED: DIAZEPAM 5 MG/ML, 10ML VIAL IV PRN (20:30)
[2018-01-14 21:00] VITALS: BP 119/67
[2018-01-15] VITALS: BP 102/54
[2018-01-15] MEDS: OXYcodone/APAP 10/325MG TABLET PO PRN ×6 (00:43→22:03)
[2018-01-15] MEDS: SODIUM CHLORIDE 0.9% 1,000 ML IV SCH ×2 (04:12→14:29)
[2018-01-15 04:15] VITALS: BP 92/57
[2018-01-15 05:38] LABS: ALANINE AMINOTRANSFERASE 20 U/L (12-78); ALBUMIN 2.5 g/dL (3.4-5.0); ANION GAP 7 mmol/L (5-15); CALCIUM 7.9 mg/dL (8.5-10.1); CHLORIDE 106 mmol/L (98-107); CREATININE 0.58 mg/dL (0.55-1.02)
[2018-01-15 05:41] LABS: ALKALINE PHOSPHATASE 62 U/L (45-117); BILIRUBIN,TOTAL 1.6 mg/dL (0.2-1.0); TOTAL PROTEIN 6.4 g/dL (6.4-8.2)
[2018-01-15 05:58] LABS: BASOPHILS % (AUTO) 0 % (0-1); EOSINOPHILS % (AUTO) 0 % (1-7); LYMPHOCYTES % (AUTO) 13 % (22-44); MD SCAN; MEAN CORPUSCULAR HEMOGLOBIN 29.1 pg (27.0-34.8); MEAN CORPUSCULAR HGB CONC 33.7 g/dL (32.4-35.8); MEAN CORPUSCULAR VOLUME 86.3 fL (80-100); MEAN PLATELET VOLUME 11.2 fL (7.4-10.4); MONOCYTES # (AUTO) 0.24 x10^3/uL (0.2-0.8); MONOCYTES % (AUTO) 8 % (2-9); NEUTROPHILS # (AUTO) 2.52 x10^3/uL (1.8-6.8); NEUTROPHILS % (AUTO) 80 % (42-75); PLATELET COUNT 96 x10^3/uL (130-400); RED BLOOD COUNT 3.28 x10^6/uL (3.82-5.3); RED CELL DISTRIBUTION WIDTH 16.3 % (9.6-15.2)
[2018-01-15] MEDS ORDERED: VANCOMYCIN 1,000 MG in SODIUM CHLORIDE 0.9% 100 ML IV SCH (06:30)
[2018-01-15] MEDS ORDERED: VANCOMYCIN PER PHARMACY MC PRN (06:30)
[2018-01-15] MEDS ORDERED: PHARMACOKINETIC MONITORING MC PRN (07:00)
[2018-01-15] MEDS ORDERED: PHARMACOKINETIC CONSULTATION MC ONE (07:00)
[2018-01-15 07:19] VITALS: BP 102/62
[2018-01-15] MEDS: ACETAMINOPHEN 325 MG TABLET PO PRN (07:52)
[2018-01-15] MEDS ORDERED: DIPHENHYDRAMINE 50 MG/ML, 1ML IVPush PRN (08:00)
[2018-01-15] MEDS ORDERED: DIAZEPAM 5 MG TABLET ONE (08:13)
[2018-01-15] MEDS: VANCOMYCIN 1,300 MG in SODIUM CHLORIDE 0.9% 250 ML IV SCH ×2 (08:16→19:58)
[2018-01-15] MEDS: DIAZEPAM 5 MG TABLET PO PRN ×3 (08:16→22:03)
[2018-01-15] MEDS: NICOTINE 14MG/24 HR PATCH.TD24 TD SCH (13:19)
[2018-01-15 15:48] VITALS: BP 104/64
[2018-01-15 20:01] VITALS: BP 104/51
[2018-01-15] MEDS: DAPTOMYCIN 400 MG in SODIUM CHLORIDE 0.9% 100 ML IVPB SCH (22:03)
[2018-01-16] MEDS: SODIUM CHLORIDE 0.9% 1,000 ML IV SCH ×3 (02:35→22:36)
[2018-01-16 02:37] VITALS: BP 113/69
[2018-01-16] MEDS: OXYcodone/APAP 10/325MG TABLET PO PRN ×4 (02:59→22:35)
[2018-01-16] MEDS: DIAZEPAM 5 MG TABLET PO PRN ×3 (02:59→20:52)
[2018-01-16 03:36] LABS: AMPHETAMINE SCREEN, URINE Negative (Negative); BARBITURATE SCREEN, URINE Negative (Negative); BENZODIAZEPINE SCREEN, URINE Positive (Negative); CANNABINOID SCREEN, URINE Negative (Negative); COCAINE SCREEN, URINE Negative (Negative); METHADONE SCREEN, URINE Negative (Negative); OPIATE SCREEN, URINE Positive (Negative)
[2018-01-16 05:37] LABS: ANION GAP 4 mmol/L (5-15); CALCIUM 8.1 mg/dL (8.5-10.1); CHLORIDE 111 mmol/L (98-107)
[2018-01-16 05:44] LABS: BASOPHILS % (AUTO) 0 % (0-1); EOSINOPHILS # (AUTO) 0.01 x10^3/uL (0-0.4); EOSINOPHILS % (AUTO) 0 % (1-7); LYMPHOCYTES # (AUTO) 0.27 x10^3/uL (1-3.4); LYMPHOCYTES % (AUTO) 6 % (22-44); MD NO; MEAN CORPUSCULAR HEMOGLOBIN 29.1 pg (27.0-34.8); MEAN CORPUSCULAR HGB CONC 33.5 g/dL (32.4-35.8); MEAN CORPUSCULAR VOLUME 86.8 fL (80-100); MONOCYTES % (AUTO) 8 % (2-9); NEUTROPHILS # (AUTO) 4.23 x10^3/uL (1.8-6.8); NEUTROPHILS % (AUTO) 86 % (42-75); PLATELET COUNT 116 x10^3/uL (130-400); RED BLOOD COUNT 3.12 x10^6/uL (3.82-5.3); RED CELL DISTRIBUTION WIDTH 16.4 % (9.6-15.2)
[2018-01-16 08:00] VITALS: BP 90/51
[2018-01-16] MEDS: NICOTINE 14MG/24 HR PATCH.TD24 TD SCH (13:30)
[2018-01-16 14:21] VITALS: BP 92/52
[2018-01-16 20:19] VITALS: BP 111/40
[2018-01-16] MEDS: DAPTOMYCIN 400 MG in SODIUM CHLORIDE 0.9% 100 ML IVPB SCH (22:35)
[2018-01-17 02:04] VITALS: BP 115/72
[2018-01-17] MEDS: OXYcodone/APAP 10/325MG TABLET PO PRN ×4 (04:56→22:10)
[2018-01-17 09:36] VITALS: BP 115/66
[2018-01-17 13:00] VITALS: BP 101/67
[2018-01-17] MEDS: NICOTINE 14MG/24 HR PATCH.TD24 TD SCH (13:30)
[2018-01-17 21:45] VITALS: BP 113/68
[2018-01-17] MEDS ORDERED: POLYETHYLENE GLYCOL 17 GM PACKET PO PRN (22:00)
[2018-01-17] MEDS: DOCUSATE 100 MG CAPSULE PO SCH (22:10)
[2018-01-17] MEDS: DIAZEPAM 5 MG TABLET PO PRN (22:10)
[2018-01-17] MEDS: SODIUM CHLORIDE 0.9% 1,000 ML IV SCH (22:10)
[2018-01-17] MEDS: DAPTOMYCIN 400 MG in SODIUM CHLORIDE 0.9% 100 ML IVPB SCH (22:10)
[2018-01-18 02:38] VITALS: BP 115/65
[2018-01-18] MEDS: DIAZEPAM 5 MG TABLET PO PRN ×2 (02:39→21:37)
[2018-01-18] MEDS: OXYcodone/APAP 10/325MG TABLET PO PRN ×4 (02:39→18:45)
[2018-01-18] MEDS: SODIUM CHLORIDE 0.9% 1,000 ML IV SCH ×2 (07:21→17:11)
[2018-01-18] MEDS: DOCUSATE 100 MG CAPSULE PO SCH ×2 (07:45→21:37)
[2018-01-18 07:52] VITALS: BP 133/83
[2018-01-18] MEDS: NICOTINE 14MG/24 HR PATCH.TD24 TD SCH (13:30)
[2018-01-18 13:53] VITALS: BP 109/63
[2018-01-18 20:47] VITALS: BP 111/69
[2018-01-18] MEDS: ACETAMINOPHEN 325 MG TABLET PO PRN (21:37)
[2018-01-18] MEDS: DAPTOMYCIN 400 MG in SODIUM CHLORIDE 0.9% 100 ML IVPB SCH (22:34)
[2018-01-19] MEDS: SODIUM CHLORIDE 0.9% 1,000 ML IV SCH ×2 (04:00→13:56)
[2018-01-19 04:15] VITALS: BP 117/72
[2018-01-19] MEDS: OXYcodone/APAP 10/325MG TABLET PO PRN ×2 (05:03→11:58)
[2018-01-19 05:32] LABS: BASOPHILS # (AUTO) 0.01 x10^3/uL (0-0.1); BASOPHILS % (AUTO) 0 % (0-1); EOSINOPHILS # (AUTO) 0.17 x10^3/uL (0-0.4); EOSINOPHILS % (AUTO) 4 % (1-7); LYMPHOCYTES # (AUTO) 0.68 x10^3/uL (1-3.4); LYMPHOCYTES % (AUTO) 14 % (22-44); MD NO; MEAN CORPUSCULAR HGB CONC 33.6 g/dL (32.4-35.8); MEAN CORPUSCULAR VOLUME 86.4 fL (80-100); MEAN PLATELET VOLUME 9.3 fL (7.4-10.4); MONOCYTES % (AUTO) 8 % (2-9); NEUTROPHILS # (AUTO) 3.55 x10^3/uL (1.8-6.8); NEUTROPHILS % (AUTO) 74 % (42-75); PLATELET COUNT 154 x10^3/uL (130-400); RED BLOOD COUNT 3.35 x10^6/uL (3.82-5.3); RED CELL DISTRIBUTION WIDTH 16.7 % (9.6-15.2)
[2018-01-19 05:42] LABS: CHLORIDE 109 mmol/L (98-107)
[2018-01-19 05:53] LABS: ALANINE AMINOTRANSFERASE 27 U/L (12-78); ALBUMIN 2.3 g/dL (3.4-5.0); ALKALINE PHOSPHATASE 85 U/L (45-117); ANION GAP 7 mmol/L (5-15); BILIRUBIN,TOTAL 1.1 mg/dL (0.2-1.0); CALCIUM 7.4 mg/dL (8.5-10.1); CREATINE KINASE, TOTAL 34 U/L (26-192); CREATININE 0.41 mg/dL (0.55-1.02); TOTAL PROTEIN 6.1 g/dL (6.4-8.2)
[2018-01-19 06:16] LABS: HCT (SEDRATE) 27.1 % (34.6-47.8)
[2018-01-19 07:59] VITALS: BP 92/56
[2018-01-19] MEDS: DOCUSATE 100 MG CAPSULE PO SCH ×2 (08:02→21:00)
[2018-01-19] MEDS: DIAZEPAM 5 MG TABLET PO PRN (08:02)
[2018-01-19 12:42] VITALS: BP 123/71
[2018-01-19] MEDS: NICOTINE 14MG/24 HR PATCH.TD24 TD SCH (12:54)
[2018-01-19] MEDS: ACETAMINOPHEN 325 MG TABLET PO PRN (13:42)
[2018-01-19] MEDS ORDERED: EPINEPHRINE 1 MG/ML, 1ML ONE (16:59)
[2018-01-19] MEDS ORDERED: BUPIVACAINE/PF 0.5% ONE (16:59)
[2018-01-19] MEDS ORDERED: BACITRACIN 50,000 UNIT ONE (16:59)
[2018-01-19] MEDS ORDERED: MIDAZOLAM 1 MG/ML, 2ML ONE (17:06)
[2018-01-19] MEDS ORDERED: FENTANYL PF 250 MCG/5ML ONE (17:06)
[2018-01-19] MEDS ORDERED: PROPOFOL 10 MG/ML, 20ML ONE (17:07)
[2018-01-19] MEDS ORDERED: NEOSTIGMINE 1 MG/ML, 10ML ONE (17:08)
[2018-01-19] MEDS ORDERED: GLYCOPYRROLATE 0.4 MG/2 ML, 2ML ONE (17:08)
[2018-01-19] MEDS ORDERED: ROCURONIUM 10MG/ML,5ML ONE (17:08)
[2018-01-19] MEDS ORDERED: ACETAMINOPHEN 325 MG TABLET PO PRN (17:30)
[2018-01-19] MEDS ORDERED: PROMETHAZINE 25 MG/ML, 1ML IV PRN (17:30)
[2018-01-19] MEDS ORDERED: MEPERIDINE/PF 25MG/0.5ML IVPush PRN (17:30)
[2018-01-19] MEDS ORDERED: hydrALAzine 20 MG/ML, 1ML IV PRN (17:30)
[2018-01-19] MEDS ORDERED: OXYcodone 5 MG/5 ML ORAL.SOL UDC PO PRN (17:30)
[2018-01-19] MEDS ORDERED: PROMETHAZINE 25 MG SUPP PR PRN (17:30)
[2018-01-19] MEDS ORDERED: MORPHINE SULFATE 4 MG/ML, 1ML IVPush PRN (17:30)
[2018-01-19] MEDS ORDERED: LABETALOL 5MG/ML, 20ML IV PRN (17:30)
[2018-01-19] MEDS ORDERED: ONDANSETRON 2MG/ML, 2ML IV PRN (17:30)
[2018-01-19] MEDS ORDERED: PROMETHAZINE 12.5 MG SUPP PR PRN (17:30)
[2018-01-19] MEDS ORDERED: ONDANSETRON ODT 8 MG PO PRN (17:30)
[2018-01-19] MEDS ORDERED: PHENYLEPHRINE 10 MG/ML ONE (17:39)
[2018-01-19] MEDS ORDERED: CEFAZOLIN 1,000 MG ONE ×2 (17:43)
[2018-01-19] MEDS ORDERED: WATER-INJECTION,STERILE 10 ML IV ONE (17:43)
[2018-01-19] MEDS ORDERED: VANCOMYCIN 1,000 MG ONE ×2 (17:45→18:14)
[2018-01-19] MEDS ORDERED: DEXAMETHASONE 4 MG/ML, 1ML ONE ×2 (18:09)
[2018-01-19] MEDS ORDERED: ONDANSETRON 2MG/ML, 2ML ONE (18:09)
[2018-01-19] MEDS ORDERED: OXYcodone 5 MG/5 ML ORAL.SOL UDC ONE (19:27)
[2018-01-19] MEDS ORDERED: FENTANYL PF 100 MCG/2ML ONE (19:27)
[2018-01-19] MEDS ORDERED: ONDANSETRON 2MG/ML, 2ML IVPush PRN (19:30)
[2018-01-19] MEDS ORDERED: PHARMACY MAY ADJ FOR RENAL FX MC PRN (19:30)
[2018-01-19] MEDS ORDERED: SENNA/DOCUSATE TABLET PO PRN (19:30)
[2018-01-19] MEDS ORDERED: NS + 20MEQ KCL 1,000 ML IV SCH (19:30)
[2018-01-19] MEDS: FENTANYL PF 100 MCG/2ML IV PRN ×3 (19:30→19:45)
[2018-01-19] MEDS ORDERED: DIAZEPAM 5 MG TABLET PO PRN (19:30)
[2018-01-19] MEDS ORDERED: PROMETHAZINE 25 MG/ML, 1ML IM PRN (19:30)
[2018-01-19] MEDS ORDERED: HYDROmorphone 2 MG/ML, 1ML ONE (19:56)
[2018-01-19] MEDS: HYDROmorphone 1 MG/ML, 1ML IV PRN ×2 (20:00→20:09)
[2018-01-19 20:54] VITALS: BP 105/64
[2018-01-20] MEDS: DAPTOMYCIN 400 MG in SODIUM CHLORIDE 0.9% 100 ML IVPB SCH (00:07)
[2018-01-20] MEDS: OXYcodone/APAP 10/325MG TABLET PO PRN ×5 (01:46→21:13)
[2018-01-20 02:40] VITALS: BP 117/65
[2018-01-20] MEDS: DIAZEPAM 5 MG TABLET PO PRN ×2 (03:52→22:25)
[2018-01-20 05:42] LABS: BASOPHILS % (AUTO) 0 % (0-1); EOSINOPHILS % (AUTO) 0 % (1-7); LYMPHOCYTES # (AUTO) 0.33 x10^3/uL (1-3.4); LYMPHOCYTES % (AUTO) 10 % (22-44); MD NO; MEAN CORPUSCULAR HEMOGLOBIN 28.5 pg (27.0-34.8); MEAN CORPUSCULAR HGB CONC 33.2 g/dL (32.4-35.8); MEAN CORPUSCULAR VOLUME 85.6 fL (80-100); MEAN PLATELET VOLUME 9.3 fL (7.4-10.4); MONOCYTES # (AUTO) 0.07 x10^3/uL (0.2-0.8); MONOCYTES % (AUTO) 2 % (2-9); NEUTROPHILS # (AUTO) 2.94 x10^3/uL (1.8-6.8); NEUTROPHILS % (AUTO) 88 % (42-75); PLATELET COUNT 129 x10^3/uL (130-400); RED CELL DISTRIBUTION WIDTH 16.4 % (9.6-15.2)
[2018-01-20 05:46] LABS: ANION GAP 7 mmol/L (5-15); CHLORIDE 109 mmol/L (98-107)
[2018-01-20 05:47] LABS: CREATININE 0.61 mg/dL (0.55-1.02)
[2018-01-20] MEDS: SODIUM CHLORIDE 0.9% 1,000 ML IV SCH ×3 (08:38→21:14)
[2018-01-20] MEDS: NICOTINE 14MG/24 HR PATCH.TD24 TD SCH (08:38)
[2018-01-20] MEDS: DOCUSATE 100 MG CAPSULE PO SCH ×2 (08:38→21:13)
[2018-01-20 09:05] VITALS: BP 128/66
[2018-01-20 12:28] VITALS: BP 94/51
[2018-01-20 19:34] VITALS: BP 106/59
[2018-01-20] MEDS: DAPTOMYCIN 520 MG in SODIUM CHLORIDE 0.9% 100 ML IVPB SCH (21:13)
[2018-01-21 05:48] VITALS: BP 151/67
[2018-01-21] MEDS: OXYcodone/APAP 10/325MG TABLET PO PRN ×4 (05:52→18:24)
[2018-01-21] MEDS: SODIUM CHLORIDE 0.9% 1,000 ML IV SCH ×2 (06:00→16:00)
[2018-01-21 08:57] VITALS: BP 132/72
[2018-01-21] MEDS: NICOTINE 14MG/24 HR PATCH.TD24 TD SCH (09:19)
[2018-01-21] MEDS: DOCUSATE 100 MG CAPSULE PO SCH ×2 (09:19→20:44)
[2018-01-21] MEDS: DIAZEPAM 5 MG TABLET PO PRN ×3 (09:36→21:53)
[2018-01-21 15:15] VITALS: BP 108/60
[2018-01-21 19:54] VITALS: BP 99/56
[2018-01-21] MEDS: DAPTOMYCIN 520 MG in SODIUM CHLORIDE 0.9% 100 ML IVPB SCH (21:53)
[2018-01-22] MEDS: SODIUM CHLORIDE 0.9% 1,000 ML IV SCH ×2 (02:00→20:00)
[2018-01-22] MEDS: OXYcodone/APAP 10/325MG TABLET PO PRN ×4 (02:20→22:47)
[2018-01-22 02:52] VITALS: BP 112/68
[2018-01-22] MEDS: DIAZEPAM 5 MG TABLET PO PRN ×2 (05:06→20:51)
[2018-01-22 07:32] VITALS: BP 125/76
[2018-01-22] MEDS: DOCUSATE 100 MG CAPSULE PO SCH ×2 (08:42→20:51)
[2018-01-22] MEDS: NICOTINE 14MG/24 HR PATCH.TD24 TD SCH (13:30)
[2018-01-22 14:15] VITALS: BP 94/60
[2018-01-22 18:21] VITALS: BP 113/67
[2018-01-22] MEDS ORDERED: LINEZOLID 600 MG TABLET PO ONE (18:30)
[2018-01-22] MEDS: DAPTOMYCIN 520 MG in SODIUM CHLORIDE 0.9% 100 ML IVPB SCH (20:51)
[2018-01-23] MEDS: SODIUM CHLORIDE 0.9% 1,000 ML IV SCH ×3 (00:55→23:37)
[2018-01-23 03:45] VITALS: BP 103/66
[2018-01-23 04:36] LABS: BASOPHILS # (AUTO) 0.02 x10^3/uL (0-0.1); BASOPHILS % (AUTO) 0 % (0-1); EOSINOPHILS # (AUTO) 0.09 x10^3/uL (0-0.4); EOSINOPHILS % (AUTO) 2 % (1-7); LYMPHOCYTES # (AUTO) 0.97 x10^3/uL (1-3.4); LYMPHOCYTES % (AUTO) 16 % (22-44); MD NO; MEAN CORPUSCULAR HEMOGLOBIN 28.9 pg (27.0-34.8); MEAN CORPUSCULAR HGB CONC 33.2 g/dL (32.4-35.8); MEAN CORPUSCULAR VOLUME 86.8 fL (80-100); MEAN PLATELET VOLUME 8.9 fL (7.4-10.4); MONOCYTES # (AUTO) 0.72 x10^3/uL (0.2-0.8); MONOCYTES % (AUTO) 12 % (2-9); NEUTROPHILS # (AUTO) 4.11 x10^3/uL (1.8-6.8); NEUTROPHILS % (AUTO) 70 % (42-75); PLATELET COUNT 150 x10^3/uL (130-400); RED BLOOD COUNT 3.17 x10^6/uL (3.82-5.3); RED CELL DISTRIBUTION WIDTH 16.8 % (9.6-15.2)
[2018-01-23 04:48] LABS: ALANINE AMINOTRANSFERASE 35 U/L (12-78); ALBUMIN 2.1 g/dL (3.4-5.0); ANION GAP 5 mmol/L (5-15); CALCIUM 7.7 mg/dL (8.5-10.1); CHLORIDE 113 mmol/L (98-107); CREATININE 0.41 mg/dL (0.55-1.02)
[2018-01-23 04:50] LABS: ALKALINE PHOSPHATASE 91 U/L (45-117); BILIRUBIN,TOTAL 0.8 mg/dL (0.2-1.0); TOTAL PROTEIN 5.4 g/dL (6.4-8.2)
[2018-01-23] MEDS: DIAZEPAM 5 MG TABLET PO PRN ×3 (04:56→20:56)
[2018-01-23] MEDS: OXYcodone/APAP 10/325MG TABLET PO PRN ×4 (04:56→20:56)
[2018-01-23 06:46] VITALS: BP 98/56
[2018-01-23] MEDS: DOCUSATE 100 MG CAPSULE PO SCH ×2 (09:09→20:56)
[2018-01-23] MEDS ORDERED: LIDOCAINE-MPF 2%, 2ML ONE (09:25)
[2018-01-23] MEDS: NICOTINE 14MG/24 HR PATCH.TD24 TD SCH (13:24)
[2018-01-23 14:00] VITALS: BP 92/60
[2018-01-23 18:50] VITALS: BP 90/58
[2018-01-23] MEDS: DAPTOMYCIN 520 MG in SODIUM CHLORIDE 0.9% 100 ML IVPB SCH (20:56)
[2018-01-24] MEDS: OXYcodone/APAP 10/325MG TABLET PO PRN ×6 (00:48→20:46)
[2018-01-24 02:25] VITALS: BP 108/62
[2018-01-24] MEDS: DIAZEPAM 5 MG TABLET PO PRN ×3 (05:26→23:32)
[2018-01-24 07:47] VITALS: BP 107/68
[2018-01-24] MEDS: DOCUSATE 100 MG CAPSULE PO SCH ×2 (08:21→20:46)
[2018-01-24] MEDS: NICOTINE 14MG/24 HR PATCH.TD24 TD SCH (08:22)
[2018-01-24] MEDS: SODIUM CHLORIDE 0.9% 1,000 ML IV SCH ×2 (12:26→22:00)
[2018-01-24 14:00] VITALS: BP 98/62
[2018-01-24 19:51] VITALS: BP 108/70
[2018-01-24] MEDS: DAPTOMYCIN 520 MG in SODIUM CHLORIDE 0.9% 100 ML IVPB SCH (20:37)
[2018-01-25 01:04] VITALS: BP 114/69
[2018-01-25] MEDS: OXYcodone/APAP 10/325MG TABLET PO PRN ×4 (02:02→20:49)
[2018-01-25] MEDS: DIAZEPAM 5 MG TABLET PO PRN ×2 (06:28→13:05)
[2018-01-25 06:59] VITALS: BP 100/68
[2018-01-25] MEDS: NICOTINE 14MG/24 HR PATCH.TD24 TD SCH (07:28)
[2018-01-25] MEDS: SODIUM CHLORIDE 0.9% 1,000 ML IV SCH ×2 (08:00→18:00)
[2018-01-25] MEDS: DOCUSATE 100 MG CAPSULE PO SCH ×2 (09:10→20:49)
[2018-01-25 14:49] VITALS: BP 104/64
[2018-01-25 19:58] VITALS: BP 134/70
[2018-01-25] MEDS: DAPTOMYCIN 520 MG in SODIUM CHLORIDE 0.9% 100 ML IVPB SCH (20:49)
[2018-01-26] MEDS: OXYcodone/APAP 10/325MG TABLET PO PRN ×4 (03:33→21:36)
[2018-01-26 03:53] LABS: BASOPHILS # (AUTO) 0.04 x10^3/uL (0-0.1); BASOPHILS % (AUTO) 1 % (0-1); EOSINOPHILS # (AUTO) 0.12 x10^3/uL (0-0.4); EOSINOPHILS % (AUTO) 2 % (1-7); LYMPHOCYTES # (AUTO) 0.87 x10^3/uL (1-3.4); LYMPHOCYTES % (AUTO) 16 % (22-44); MD NO; MEAN CORPUSCULAR HEMOGLOBIN 28.7 pg (27.0-34.8); MEAN CORPUSCULAR HGB CONC 33.5 g/dL (32.4-35.8); MEAN CORPUSCULAR VOLUME 85.8 fL (80-100); MEAN PLATELET VOLUME 9.4 fL (7.4-10.4); MONOCYTES # (AUTO) 0.64 x10^3/uL (0.2-0.8); MONOCYTES % (AUTO) 12 % (2-9); NEUTROPHILS # (AUTO) 3.91 x10^3/uL (1.8-6.8); NEUTROPHILS % (AUTO) 70 % (42-75); PLATELET COUNT 131 x10^3/uL (130-400); RED BLOOD COUNT 3.03 x10^6/uL (3.82-5.3); RED CELL DISTRIBUTION WIDTH 17.1 % (9.6-15.2)
[2018-01-26] MEDS: SODIUM CHLORIDE 0.9% 1,000 ML IV SCH ×3 (04:00→23:28)
[2018-01-26 04:01] LABS: ANION GAP 5 mmol/L (5-15); CALCIUM 7.9 mg/dL (8.5-10.1); CHLORIDE 108 mmol/L (98-107)
[2018-01-26 07:54] VITALS: BP 98/58
[2018-01-26] MEDS: DIAZEPAM 5 MG TABLET PO PRN ×2 (09:03→21:42)
[2018-01-26] MEDS: DOCUSATE 100 MG CAPSULE PO SCH ×2 (09:03→21:37)
[2018-01-26] MEDS: ACETAMINOPHEN 325 MG TABLET PO PRN ×2 (09:03→09:16)
[2018-01-26] MEDS: NICOTINE 14MG/24 HR PATCH.TD24 TD SCH ×2 (09:04→09:16)
[2018-01-26 15:55] VITALS: BP 114/72
[2018-01-26 20:01] VITALS: BP 125/81
[2018-01-26] MEDS: DAPTOMYCIN 520 MG in SODIUM CHLORIDE 0.9% 100 ML IVPB SCH (21:37)
[2018-01-27 02:11] VITALS: BP 114/66
[2018-01-27] MEDS: OXYcodone/APAP 10/325MG TABLET PO PRN ×3 (02:38→20:31)
[2018-01-27 03:02] LABS: HCT (SEDRATE) 26.3 % (34.6-47.8)
[2018-01-27] MEDS: DOCUSATE 100 MG CAPSULE PO SCH ×2 (07:23→20:31)
[2018-01-27 07:30] VITALS: BP 110/69
[2018-01-27] MEDS: SODIUM CHLORIDE 0.9% 1,000 ML IV SCH ×2 (10:00→20:00)
[2018-01-27 12:57] VITALS: BP 118/72
[2018-01-27 19:44] VITALS: BP 140/80
[2018-01-27] MEDS: DIAZEPAM 5 MG TABLET PO PRN (20:31)
[2018-01-27] MEDS: DAPTOMYCIN 520 MG in SODIUM CHLORIDE 0.9% 100 ML IVPB SCH (20:38)
[2018-01-28 02:30] VITALS: BP 110/66
[2018-01-28] MEDS: OXYcodone/APAP 10/325MG TABLET PO PRN ×6 (03:06→21:59)
[2018-01-28] MEDS: SODIUM CHLORIDE 0.9% 1,000 ML IV SCH ×2 (06:00→16:00)
[2018-01-28] MEDS: NICOTINE 14MG/24 HR PATCH.TD24 TD SCH ×2 (07:54→09:00)
[2018-01-28] MEDS: DOCUSATE 100 MG CAPSULE PO SCH ×2 (07:54→21:59)
[2018-01-28 08:57] VITALS: BP 98/64
[2018-01-28 12:22] VITALS: BP 137/64
[2018-01-28] MEDS: DIAZEPAM 5 MG TABLET PO PRN (12:29)
[2018-01-28] MEDS: LACTULOSE 20 GM/30 ML UDC PO ONE ×2 (14:13→22:03)
[2018-01-28 19:09] VITALS: BP 125/52
[2018-01-28] MEDS: DAPTOMYCIN 520 MG in SODIUM CHLORIDE 0.9% 100 ML IVPB SCH (21:50)
[2018-01-28 23:35] VITALS: BP 107/66
[2018-01-29] MEDS: SODIUM CHLORIDE 0.9% 1,000 ML IV SCH ×2 (02:00→19:59)
[2018-01-29 07:47] VITALS: BP 119/68
[2018-01-29] MEDS: DOCUSATE 100 MG CAPSULE PO SCH ×2 (08:27→19:53)
[2018-01-29] MEDS: NICOTINE 14MG/24 HR PATCH.TD24 TD SCH (08:29)
[2018-01-29 14:17] VITALS: BP 123/72
[2018-01-29] MEDS: RIFAMPIN 300 MG CAPSULE PO SCH (14:30)
[2018-01-29] MEDS: OXYcodone/APAP 10/325MG TABLET PO PRN ×2 (14:44→18:23)
[2018-01-29 19:05] VITALS: BP 123/56
[2018-01-29] MEDS: DIAZEPAM 5 MG TABLET PO PRN (19:53)
[2018-01-29] MEDS: ARIPIPRAZOLE 10 MG TABLET PO SCH (19:53)
[2018-01-29] MEDS: DAPTOMYCIN 520 MG in SODIUM CHLORIDE 0.9% 100 ML IVPB SCH (21:03)
[2018-01-30 00:49] VITALS: BP 136/60
[2018-01-30] MEDS: OXYcodone/APAP 10/325MG TABLET PO PRN ×2 (03:56→07:34)
[2018-01-30] MEDS: SODIUM CHLORIDE 0.9% 1,000 ML IV SCH ×3 (07:00→20:51)
[2018-01-30 07:23] VITALS: BP 132/64
[2018-01-30] MEDS: DOCUSATE 100 MG CAPSULE PO SCH ×2 (09:26→20:51)
[2018-01-30] MEDS: NICOTINE 14MG/24 HR PATCH.TD24 TD SCH (09:26)
[2018-01-30] MEDS: RIFAMPIN 300 MG CAPSULE PO SCH (09:27)
[2018-01-30] MEDS: ACETAMINOPHEN 325 MG TABLET PO PRN ×3 (12:01→20:51)
[2018-01-30 14:27] VITALS: BP 96/59
[2018-01-30 19:26] VITALS: BP 107/68
[2018-01-30] MEDS: DAPTOMYCIN 520 MG in SODIUM CHLORIDE 0.9% 100 ML IVPB SCH (20:50)
[2018-01-30] MEDS: ARIPIPRAZOLE 10 MG TABLET PO SCH (20:51)
[2018-01-30] MEDS: DIAZEPAM 5 MG TABLET PO PRN (21:55)
[2018-01-31 01:10] VITALS: BP 117/73
[2018-01-31] MEDS: ACETAMINOPHEN 325 MG TABLET PO PRN ×2 (02:48→09:11)
[2018-01-31] MEDS: OXYcodone/APAP 10/325MG TABLET PO PRN (05:31)
[2018-01-31 06:45] VITALS: BP 124/77
[2018-01-31] MEDS: NICOTINE 14MG/24 HR PATCH.TD24 TD SCH (08:54)
[2018-01-31] MEDS: DOCUSATE 100 MG CAPSULE PO SCH (09:05)
[2018-01-31] MEDS: RIFAMPIN 300 MG CAPSULE PO SCH (09:05)
[2018-01-31] MEDS ORDERED: POLYETHYLENE GLYCOL 17 GM PACKET PO PRN (11:30)
[2018-01-31] MEDS ORDERED: MULTIVITAMIN 1 TABLET PO SCH (11:30)
[2018-01-31] MEDS ORDERED: OXYcodone/APAP 5/325MG TABLET PO PRN (11:30)
[2018-01-31] MEDS ORDERED: GABAPENTIN 300 MG CAPSULE PO SCH (11:30)
[2018-01-31] MEDS ORDERED: THIAMINE 100MG TABLET PO SCH (11:30)
[2018-01-31] MEDS ORDERED: METHOCARBAMOL 750 MG TABLET PO PRN (11:30)
[2018-01-31] MEDS ORDERED: FOLIC ACID 1 MG TABLET PO SCH (11:30)
[2018-01-31] MEDS ORDERED: DAPT500V6 IV (11:43)
[2018-01-31] MEDS ORDERED: HALOPERIDOL 5 MG/ML ONE (11:43)
[2018-01-31] MEDS ORDERED: ARIP10TA33 PO (11:43)
[2018-01-31] MEDS ORDERED: RIFA300C3 PO (11:43)
[2018-01-31] MEDS ORDERED: DIAZ5TAB4 PO (11:43)
[2018-01-31] MEDS ORDERED: MORP10VI10 IVPush (11:43)
[2018-01-31] MEDS ORDERED: NICO-486 TD (11:43)
[2018-01-31] MEDS ORDERED: ALPR0.254 PO (11:43)
[2018-01-31] MEDS ORDERED: HALOPERIDOL 5 MG/ML IM ONE (12:00)
[2018-01-31] MEDS ORDERED: ERGOCALCIFEROL 50,000 UNIT CAPSULE PO SCH (12:00)
[2018-01-31] MEDS: SODIUM CHLORIDE 0.9% 1,000 ML IV SCH (13:00)
[2018-01-31 13:08] VITALS: BP 103/67
== END 2018-01-31 17:00 | disposition left against medical advice (07) | DRG 856 ==
LOC: ED 12:05 → EDIP 13:02 → 4NOR 14:15
PROVIDERS: ADMIT Internal Medicine; ATTEND Internal Medicine
PROC: 0KB20ZZ Excision of Right Neck Muscle, Open Approach (ICD-10-PCS; 2018-01-14)
PROC: 0KB30ZZ Excision of Left Neck Muscle, Open Approach (ICD-10-PCS; principal; 2018-01-14 18:30)
PROC: 0JB50ZZ Excision of Left Neck Subcutaneous Tissue and Fascia, Open Approach (ICD-10-PCS; 2018-01-19)
PROC: 0JB40ZZ Excision of Right Neck Subcutaneous Tissue and Fascia, Open Approach (ICD-10-PCS; 2018-01-19)
PROC: 0HQ4XZZ Repair Neck Skin, External Approach (ICD-10-PCS; 2018-01-19)
PROC: 02HV33Z Insertion of Infusion Device into Superior Vena Cava, Percutaneous Approach (ICD-10-PCS; 2018-01-19)
PROC: B548ZZA Ultrasonography of Superior Vena Cava, Guidance (ICD-10-PCS; 2018-01-19)
DX: T81.4XXA Infection following a procedure, initial encounter (principal); E43 Unspecified severe protein-calorie malnutrition; G06.1 Intraspinal abscess and granuloma; A41.02 Sepsis due to Methicillin resistant Staphylococcus aureus; T81.30XA Disruption of wound, unspecified, initial encounter; I85.00 Esophageal varices without bleeding; L02.11 Cutaneous abscess of neck; B19.20 Unspecified viral hepatitis C without hepatic coma; D69.59 Other secondary thrombocytopenia; F17.210 Nicotine dependence, cigarettes, uncomplicated; F22 Delusional disorders; F31.9 Bipolar disorder, unspecified; J44.9 Chronic obstructive pulmonary disease, unspecified; K27.9 Peptic ulcer, site unspecified, unspecified as acute or chronic, without hemorrhage or perforation; K70.30 Alcoholic cirrhosis of liver without ascites; N93.9 Abnormal uterine and vaginal bleeding, unspecified; Z98.51 Tubal ligation status; Y83.8 Other surgical procedures as the cause of abnormal reaction of the patient, or of later complication, without mention of misadventure at the time of the procedure; Y92.89 Other specified places as the place of occurrence of the external cause; Z68.27 Body mass index [BMI] 27.0-27.9, adult; E55.9 Vitamin D deficiency, unspecified; Z53.21 Procedure and treatment not carried out due to patient leaving prior to being seen by health care provider
CPT/HCPCS: 36415; 36569; 71045; 72156; 76705; 76937; 77001; 80048; 80053; 80307; 81001; 82140; 82550; 83605; 83735; 84100; 84145; 85025; 85610; 85651; 85730; 86140; 87015; 87040; 87070; 87075; 87077; 87102; 87116; 87147; 87186; 87205; 87206; 93306; 96365; 99285; A9585; C1713; J0171; J0690; J0878; J1100; J1170; J2175; J2250; J2405; J2704; J2710; J3010; J3360; J3370; J3480; J3490; C1751; J1630; J2270; J2370; J7030; J7050; Q9968

== ENCOUNTER 2018-12-01 17:00 | Emergency (ER) | payer MEDICAID ==
[~2018-12-01] VITALS: Ht 165.1 cm; Wt 72.0 kg
[~2018-12-01 17:00] MED LIST changes: +ALPR0.254 PO; +ARIP10TA33 PO; +DAPT500V6 IV; +MORP10VI10 IVPush; +NICO-486 TD; +OXYC-302 PO; +RIFA300C3 PO; +SENN-177 PO; -SENN1TAB7 PO
--- NOTE | 2018-12-01 17:07 | NUR ---
pt marlin dailey. states she has pain 10/10 in her neck and she has had diarrhea x 2 days. pt attached to all the monitors. pt states she is withdrawing from opiods and thats why she has diarrhea. blanket provided, call light within reach.
[2018-12-01] MEDS ORDERED: ONDANSETRON 2MG/ML, 2ML IVPush ONE (17:30)
[2018-12-01] MEDS ORDERED: SODIUM CHLORIDE 0.9% 1,000ML IV ONE (17:30)
[2018-12-01] MEDS ORDERED: HYDROmorphone 2 MG/ML, 1ML IVPush PRN (17:30)
[2018-12-01] MEDS ORDERED: ONDANSETRON 2MG/ML, 2ML ONE (17:41)
[2018-12-01] MEDS ORDERED: HYDROmorphone 2 MG/ML, 1ML ONE (17:42)
[2018-12-01 18:08] VITALS: BP 122/70
[2018-12-01 18:15] LABS: ALANINE AMINOTRANSFERASE 55 U/L (12-78); ALBUMIN 2.9 g/dL (3.4-5.0); ANION GAP 12 mmol/L (5-15); CALCIUM 8.4 mg/dL (8.5-10.1); CHLORIDE 115 mmol/L (98-107); CREATININE 0.54 mg/dL (0.55-1.02)
[2018-12-01 18:17] LABS: ALKALINE PHOSPHATASE 120 U/L (45-117); BILIRUBIN,TOTAL 2.6 mg/dL (0.2-1.0); TOTAL PROTEIN 6.7 g/dL (6.4-8.2)
--- NOTE | 2018-12-01 18:19 | NUR ---
PT BACK FROM IMAGING. IV PLACED, LABS COLLECTED, FLUIDS STARTED AND PT MEDICATED FOR PAIN. SUP O2 APPLIED TO KEEP SATS WNL.
[2018-12-01 18:48] LABS: BASOPHILS # (AUTO) 0.03 x10^3/uL (0-0.1); BASOPHILS % (AUTO) 1 % (0-1); EOSINOPHILS # (AUTO) 0.02 x10^3/uL (0-0.4); EOSINOPHILS % (AUTO) 0 % (1-7); LYMPHOCYTES # (AUTO) 1.17 x10^3/uL (1-3.4); LYMPHOCYTES % (AUTO) 21 % (22-44); MD SCAN; MEAN CORPUSCULAR HEMOGLOBIN 31.7 pg (27.0-34.8); MEAN CORPUSCULAR HGB CONC 33.9 g/dL (32.4-35.8); MEAN CORPUSCULAR VOLUME 93.6 fL (80-100); MEAN PLATELET VOLUME 9.5 fL (7.4-10.4); MONOCYTES # (AUTO) 0.26 x10^3/uL (0.2-0.8); MONOCYTES % (AUTO) 5 % (2-9); NEUTROPHILS % (AUTO) 74 % (42-75); PLATELET COUNT 71 x10^3/uL (130-400); RED CELL DISTRIBUTION WIDTH 14.6 % (9.6-15.2)
--- NOTE | 2018-12-01 19:27 | NUR ---
pt ambulatory to bathroom with no assist
== END 2018-12-01 19:47 | disposition home or self-care (01) ==
LOC: ED 19:36
DX: F10.220 Alcohol dependence with intoxication, uncomplicated (principal); F11.23 Opioid dependence with withdrawal; M54.6 Pain in thoracic spine; G89.29 Other chronic pain; R11.2 Nausea with vomiting, unspecified; R19.7 Diarrhea, unspecified; Z91.013 Allergy to seafood; Z88.6 Allergy status to analgesic agent; Z88.1 Allergy status to other antibiotic agents
CPT/HCPCS: 36415; 71045; 72072; 80053; 80307; 83690; 85025; 96361; 96374; 96375; 99284; J1170; J2405; J7030

== ENCOUNTER 2018-12-29 19:48 | Emergency (ER) | payer MEDICAID ==
[~2018-12-29] VITALS: Ht 165.1 cm; Wt 68.0 kg
--- NOTE | 2018-12-29 20:08 | NUR ---
PT BIB [facility] AFTER DRINKING 2-40 OZ MICKEYS AND FALLING IN SHOWER. PT APPEARS VERY INTOXICATED AND IS SLURRING WORDS. PT IS ABLE TO ADEQUATELY PROTECT AIRWAY. PT STATES SHE FELL ONTO BOTTOM AND DENIES HITTING HEAD. PER EMS, UPON ARRIVAL TO HOME, PT HAD EPISTAXIS, BUT PT WAS UNABLE STATE IF SHE HIT HER NOSE OR NOT. PT CONNECTED TO MONITORS. VSS. AWAITING EDMD ASSESSMENT.
[2018-12-29] MEDS ORDERED: KETOROLAC 30 MG/1 ML IM ONE (21:00)
--- NOTE | 2018-12-29 21:19 | NUR ---
PT CONTINUES TO CUSS AND SCREAM AT STAFF AND REMOVE ALL MONITORING EQUIPMENT. VS SPOT CHECKED AND STABLE. PT TO XR AT THIS TIME.
--- NOTE | 2018-12-29 21:48 | NUR ---
PT BACK FROM XRAY. PT CONTINUES TO YELL AND CUSS. PT IS COOPERATIVE WITH INSTRUCTIONS TO STAY LYING IN GURNEY.
--- NOTE | 2018-12-29 23:14 | NUR ---
PT REPOSITIONED WITH ASSISTANCE TO SIT UPRIGHT ON GURNEY. CEREAL, MILK, APPLESAUCE AND JUICE PROVIDED. PT VERBALIZES UNDERSTANDING TO NOT GET OOB W/O CALLING FOR RN TO ASSIST.
[2018-12-30] MEDS ORDERED: ACETAMINOPHEN 500 MG TABLET PO ONE
[2018-12-30] MEDS ORDERED: ACETAMINOPHEN 500 MG TABLET ONE (00:11)
[2018-12-30 00:23] VITALS: BP 110/67
--- NOTE | 2018-12-30 00:33 | NUR ---
PT ATE 100% OF THE FOOD PROVIDED AND THEN RTD TO SLEEPING. NOW ARROUSES EASILY TO VERBAL STIMULATION. PT CRESSED WITH ASSIST. NON-SLIP SOCKS PROVIDED PT DID NOT HAVE SHOES ON WHEN SHE ARRIVED. PT AMBULATES USING WHEELED WALKER. TAXI VOUCHER PROVIDED TO [address] [address] WHERE PT STATES SHE HAS A ROOM.
--- NOTE | 2018-12-30 00:35 | NUR ---
Patient/Caregiver given discharge instructions and they have confirmed that they understand the instructions. Patient ambulatory with wheeled walker
== END 2018-12-30 00:36 | disposition home or self-care (01) ==
LOC: ED 21:12
DX: S39.012A Strain of muscle, fascia and tendon of lower back, initial encounter (principal); G89.11 Acute pain due to trauma; F10.220 Alcohol dependence with intoxication, uncomplicated; J44.9 Chronic obstructive pulmonary disease, unspecified; I51.9 Heart disease, unspecified; Z72.9 Problem related to lifestyle, unspecified; F17.200 Nicotine dependence, unspecified, uncomplicated; X58.XXXA Exposure to other specified factors, initial encounter; Y93.89 Activity, other specified; Y92.89 Other specified places as the place of occurrence of the external cause; Y99.8 Other external cause status; Y90.9 Presence of alcohol in blood, level not specified
CPT/HCPCS: 72110; 99283

== ENCOUNTER 2019-05-19 17:04 | Inpatient (IN) | payer MEDICAID ==
[~2019-05-19] VITALS: Ht 165.1 cm; Wt 71.7 kg
--- NOTE | 2019-05-19 17:10 | NUR ---
BREAK RN FOR PRIMARY RN ANNA. TYLER ROMERO FROM [facility]. PER PT "I HAD A SORE THORAT 1.5 MONTHS AGO AND THEN NECK STARTED SWELLING MORE AND MORE AND THEN YESTERDAY IT OPENED UP AND STARTED DRAINING." SWELLING, ERYTHEMA NOTED TO NECK "IT'S LIKE AN ABSCESS THEY THINK" PER PT. CONT PULSE OX, BP, CARDIAC MONITORS APPLIED. ST ON MONITOR. VSS. CALL LIGHT IN REACH. FALL PRECAUTIONS IN PLACE. A&OX4. DR. ENGLISH AT BEDSIDE FOR EVALUATION, AWAITING ORDERS. ASSESSMENT COMPLETED.
[2019-05-19] MEDS ORDERED: MORPHINE SULFATE 4 MG/ML, 1ML IVPush PRN (17:30)
[2019-05-19] MEDS ORDERED: SODIUM CHLORIDE FLUSH 10ML SYR IVF ONE (17:30)
[2019-05-19] MEDS ORDERED: ACETAMINOPHEN 500 MG TABLET PO ONE (17:30)
--- NOTE | 2019-05-19 17:31 | NUR ---
BEDSIDE REPORT AND CARE TO ANNA MITTAL AT THIS TIME
[2019-05-19] MEDS ORDERED: MORPHINE SULFATE 4 MG/ML, 1ML ONE ×2 (17:41→22:46)
[2019-05-19] MEDS ORDERED: ACETAMINOPHEN 500 MG TABLET ONE (17:41)
[2019-05-19] MEDS ORDERED: TRAZ-137 PO (17:50)
[2019-05-19] MEDS ORDERED: DULO60CA7 PO (17:50)
[2019-05-19] MEDS ORDERED: DEXT10TA7 PO (17:50)
[2019-05-19 17:56] LABS: BASOPHILS # (AUTO) 0.02 x10^3/uL (0-0.1); BASOPHILS % (AUTO) 0 % (0-1); EOSINOPHILS # (AUTO) 0.12 x10^3/uL (0-0.4); EOSINOPHILS % (AUTO) 2 % (1-7); LYMPHOCYTES # (AUTO) 0.69 x10^3/uL (1-3.4); LYMPHOCYTES % (AUTO) 13 % (22-44); MD NO; MEAN CORPUSCULAR HEMOGLOBIN 31.7 pg (27.0-34.8); MEAN PLATELET VOLUME 8.4 fL (7.4-10.4); MONOCYTES # (AUTO) 0.35 x10^3/uL (0.2-0.8); MONOCYTES % (AUTO) 6 % (2-9); NEUTROPHILS # (AUTO) 4.35 x10^3/uL (1.8-6.8); NEUTROPHILS % (AUTO) 79 % (42-75); PLATELET COUNT 204 x10^3/uL (130-400); RED BLOOD COUNT 3.98 x10^6/uL (3.82-5.3); RED CELL DISTRIBUTION WIDTH 14.8 % (9.6-15.2)
[2019-05-19 17:57] LABS: ALANINE AMINOTRANSFERASE 19 U/L (12-78); ALBUMIN 2.4 g/dL (3.4-5.0); ANION GAP 8 mmol/L (5-15); CALCIUM 8.9 mg/dL (8.5-10.1); CHLORIDE 105 mmol/L (98-107)
[2019-05-19 18:00] LABS: ALKALINE PHOSPHATASE 100 U/L (45-117); BILIRUBIN,TOTAL 2.7 mg/dL (0.2-1.0); CREATININE 0.62 mg/dL (0.55-1.02); TOTAL PROTEIN 7.6 g/dL (6.4-8.2)
--- NOTE | 2019-05-19 18:04 | NUR ---
REPORT FROM SUSIE MITTAL, ASSUME CARE OF PT AT THIS TIME. PT ON ALL ROOM MONITORING, VSS AT THIS TIME AND UPDATED IN COMPUTER. PT MEDICATED WITH TYLENOL PER ERP ORDER FOR NECK PAIN RATED AT 8/10. PT REFUSING MORPHINE AT THIS TIME, STATING PREVIOUS DRUG ADDICTION. IV PLACED FOR CT. PT UPDATED ON POC. CALL LIGHT WITHIN REACH, WARM BLANKET PROVIDED. Addendum: 05/19/19 at 1809 by KIT PT REPORTS OF BEDBUGS AT HOME. NOTED RASH, BUG BITES TO LEGS,ARMS AND BACK. NO VISIBLE BUGS AT THIS TIME.
--- NOTE | 2019-05-19 18:09 | NUR ---
PT TO CT.
[2019-05-19] MEDS ORDERED: HYDROcodone/APAP 5/325 TABLET ONE (18:20)
[2019-05-19] MEDS ORDERED: hydrALAzine 20 MG/ML, 1ML ONE (18:20)
[2019-05-19] MEDS ORDERED: OMNIPAQUE 350 MG/ML, 100ML BOTTLE ONE (18:40)
--- NOTE | 2019-05-19 19:07 | NUR ---
VSS UPDATED IN COMPUTER. PT PROVIDED BSC. AWAITING CT READ.
--- NOTE | 2019-05-19 19:57 | NUR ---
CT RESULTS BACK, PT FOR RECHECK.
[2019-05-19] MEDS ORDERED: SODIUM CHLORIDE 0.9% 1,000ML IVBOLUS ONE (20:30)
--- NOTE | 2019-05-19 20:36 | NUR ---
MRI SHEET COMPLETED/FAXED OVER. Addendum: 05/19/19 at 7 by KIT IVF BOLUS INFUSING PER ERP ORDER.
--- NOTE | 2019-05-19 20:50 | NUR ---
REPORT OF PT FROM DAXA Avila AND ASSUMING CARE OF PT AT THIS TIME.
--- NOTE | 2019-05-19 20:55 | NUR ---
REPORT TO FRANKY MITTAL, TRANSFER OF CARE AT THIS TIME
[2019-05-19] MEDS ORDERED: GADOTERATE 7.5 MMOL/15 ML SYR ONE (21:23)
[2019-05-19] MEDS ORDERED: ERTAPENEM 1 GM in SODIUM CHLORIDE 0.9% 50 ML IV ONE (22:37)
[2019-05-19] MEDS ORDERED: VANCOMYCIN 1,200 MG in SODIUM CHLORIDE 0.9% 250 ML IV ONE (22:41)
[2019-05-19] MEDS ORDERED: VANCOMYCIN PER PHARMACY MC PRN ×2 (23:00→23:30)
[2019-05-19] MEDS ORDERED: SODIUM CHLORIDE 0.9% 1,000 ML IV ONE (23:00)
--- NOTE | 2019-05-19 23:22 | NUR ---
PT RESTING IN [facility] AT THIS TIME WITH HOSPITALIST AT . PT MEDICATED FOR PAIN PER MAR. PT DENIES ANY NEEDS AT THIS TIME. IV PUMP REQUESTED FROM [facility] AT THIS TIME FOR IV ABX ADMINISTRATION.
[2019-05-19] MEDS ORDERED: POLYETHYLENE GLYCOL 17 GM PACKET PO PRN (23:30)
[2019-05-19] MEDS ORDERED: TRAZODONE 100MG TABLET PO PRN (23:30)
[2019-05-19] MEDS ORDERED: PIPERACILLIN/TAZO/PMX 3.375GM 50 ML IV SCH (23:30)
[2019-05-19] MEDS ORDERED: BISACODYL 10 MG SUPP PR PRN (23:30)
[2019-05-19] MEDS: NS + 20MEQ KCL 1,000 ML IV SCH (23:30)
[2019-05-19] MEDS ORDERED: ONDANSETRON ODT 4 MG PO PRN (23:30)
[2019-05-20] LABS: HCT (SEDRATE) 38.2 % (34.6-47.8)
--- NOTE | 2019-05-20 00:17 | NUR ---
PT RESTING CALMLY, IV ABX STARTED, DENIES NEEDS, MONITORS IN PLACE, CALL LIGHT WITHIN REACH. AWAITING ROOM FOR ADMIT
[2019-05-20] MEDS: ERTAPENEM 1 GM in SODIUM CHLORIDE 0.9% 50 ML IV SCH ×2 (02:46→23:28)
[2019-05-20 03:18] VITALS: BP 104/66
[2019-05-20] MEDS: morphine SULFATE 10 MG/ML, 1ML IVPush PRN (04:00)
[2019-05-20 05:07] LABS: AMPHETAMINE SCREEN, URINE Negative (Negative); BARBITURATE SCREEN, URINE Negative (Negative); BENZODIAZEPINE SCREEN, URINE Negative (Negative); CANNABINOID SCREEN, URINE Positive (Negative); COCAINE SCREEN, URINE Negative (Negative); METHADONE SCREEN, URINE Negative (Negative); OPIATE SCREEN, URINE Positive (Negative)
[2019-05-20] MEDS ORDERED: PHARMACOKINETIC MONITORING MC PRN (06:00)
[2019-05-20] MEDS ORDERED: PHARMACOKINETIC CONSULTATION MC ONE (06:00)
[2019-05-20 07:00] VITALS: BP 114/69
[2019-05-20 07:54] LABS: BASOPHILS # (AUTO) 0.02 x10^3/uL (0-0.1); BASOPHILS % (AUTO) 0 % (0-1); EOSINOPHILS # (AUTO) 0.15 x10^3/uL (0-0.4); EOSINOPHILS % (AUTO) 3 % (1-7); LYMPHOCYTES # (AUTO) 0.88 x10^3/uL (1-3.4); LYMPHOCYTES % (AUTO) 16 % (22-44); MD NO; MEAN CORPUSCULAR HEMOGLOBIN 30.8 pg (27.0-34.8); MEAN CORPUSCULAR HGB CONC 32.8 g/dL (32.4-35.8); MONOCYTES # (AUTO) 0.41 x10^3/uL (0.2-0.8); MONOCYTES % (AUTO) 8 % (2-9); NEUTROPHILS # (AUTO) 3.92 x10^3/uL (1.8-6.8); NEUTROPHILS % (AUTO) 73 % (42-75); PLATELET COUNT 165 x10^3/uL (130-400); RED BLOOD COUNT 3.52 x10^6/uL (3.82-5.3); RED CELL DISTRIBUTION WIDTH 14.8 % (9.6-15.2)
[2019-05-20 08:01] LABS: ALBUMIN 2.2 g/dL (3.4-5.0); ANION GAP 7 mmol/L (5-15); CALCIUM 8.6 mg/dL (8.5-10.1); CHLORIDE 111 mmol/L (98-107)
[2019-05-20 08:10] LABS: ALANINE AMINOTRANSFERASE 19 U/L (12-78); ALKALINE PHOSPHATASE 85 U/L (45-117); BILIRUBIN,TOTAL 2.2 mg/dL (0.2-1.0); CREATININE 0.44 mg/dL (0.55-1.02); TOTAL PROTEIN 6.6 g/dL (6.4-8.2)
[2019-05-20] MEDS: SENNA/DOCUSATE TABLET PO SCH (08:20)
[2019-05-20] MEDS: NS + 20MEQ KCL 1,000 ML IV SCH (08:21)
[2019-05-20] MEDS: DULOXETINE 30 MG CAPSULE.DR PO SCH (08:21)
[2019-05-20 12:55] LABS: INTERNATIONAL NORMALIZED RATIO 1.18 (0.93-1.1); PROTHROMBIN TIME 12.3 Seconds (9.6-11.5)
[2019-05-20] MEDS: VANCOMYCIN 1,200 MG in SODIUM CHLORIDE 0.9% 250 ML IV SCH (13:11)
[2019-05-20 13:13] VITALS: BP 105/62
[2019-05-20] MEDS ORDERED: ONDANSETRON 2MG/ML, 2ML ONE (16:40)
[2019-05-20] MEDS ORDERED: PROPOFOL 10 MG/ML, 20ML ONE (16:40)
[2019-05-20] MEDS ORDERED: DEXAMETHASONE 4 MG/ML, 1ML ONE (16:40)
[2019-05-20] MEDS ORDERED: FENTANYL PF 100 MCG/2ML ONE (17:14)
[2019-05-20] MEDS ORDERED: BACITRACIN 50,000 UNIT ONE (17:17)
[2019-05-20] MEDS ORDERED: NEOSPORIN OINT, 15GM ONE (17:57)
[2019-05-20 19:47] VITALS: BP 116/70
[2019-05-20] MEDS ORDERED: NS + 20MEQ KCL 1,000 ML IV SCH (23:30)
[2019-05-20 23:57] LABS: OCCULT BLOOD NEGATIVE (NEGATIVE)
[2019-05-21] MEDS: morphine SULFATE 10 MG/ML, 1ML IVPush PRN ×3 (00:15→22:35)
[2019-05-21] MEDS: VANCOMYCIN 1,200 MG in SODIUM CHLORIDE 0.9% 250 ML IV SCH ×2 (00:15→13:17)
[2019-05-21 03:27] VITALS: BP 100/56
[2019-05-21 04:45] LABS: MEAN CORPUSCULAR HGB CONC 32.8 g/dL (32.4-35.8); MEAN CORPUSCULAR VOLUME 94.6 fL (80-100); MEAN PLATELET VOLUME 8.4 fL (7.4-10.4); PLATELET COUNT 160 x10^3/uL (130-400); RED BLOOD COUNT 3.41 x10^6/uL (3.82-5.3); RED CELL DISTRIBUTION WIDTH 14.8 % (9.6-15.2)
[2019-05-21 04:52] LABS: ANION GAP 5 mmol/L (5-15); CALCIUM 8.4 mg/dL (8.5-10.1); CHLORIDE 109 mmol/L (98-107)
[2019-05-21 05:14] LABS: BASOPHILS # (AUTO) 0.01 x10^3/uL (0-0.1); BASOPHILS % (AUTO) 0 % (0-1); EOSINOPHILS % (AUTO) 0 % (1-7); LYMPHOCYTES % (AUTO) 15 % (22-44); MD SCAN; MONOCYTES # (AUTO) 0.07 x10^3/uL (0.2-0.8); MONOCYTES % (AUTO) 3 % (2-9); NEUTROPHILS # (AUTO) 2.24 x10^3/uL (1.8-6.8); NEUTROPHILS % (AUTO) 83 % (42-75)
[2019-05-21 07:51] VITALS: BP 91/54
[2019-05-21] MEDS: SENNA/DOCUSATE TABLET PO SCH (09:00)
[2019-05-21] MEDS: DULOXETINE 30 MG CAPSULE.DR PO SCH (09:58)
[2019-05-21 18:57] VITALS: BP 111/62
[2019-05-22 00:17] VITALS: BP 111/69
[2019-05-22] MEDS: ERTAPENEM 1 GM in SODIUM CHLORIDE 0.9% 50 ML IV SCH (00:21)
[2019-05-22] MEDS: VANCOMYCIN 1,200 MG in SODIUM CHLORIDE 0.9% 250 ML IV SCH ×3 (00:54→14:38)
[2019-05-22] MEDS: morphine SULFATE 10 MG/ML, 1ML IVPush PRN ×2 (01:40→09:26)
[2019-05-22 05:40] LABS: BASOPHILS # (AUTO) 0.05 x10^3/uL (0-0.1); BASOPHILS % (AUTO) 1 % (0-1); EOSINOPHILS # (AUTO) 0.16 x10^3/uL (0-0.4); EOSINOPHILS % (AUTO) 2 % (1-7); LYMPHOCYTES % (AUTO) 12 % (22-44); MD NO; MEAN CORPUSCULAR HEMOGLOBIN 31.2 pg (27.0-34.8); MEAN CORPUSCULAR HGB CONC 32.3 g/dL (32.4-35.8); MEAN CORPUSCULAR VOLUME 96.6 fL (80-100); MEAN PLATELET VOLUME 8.6 fL (7.4-10.4); MONOCYTES # (AUTO) 0.48 x10^3/uL (0.2-0.8); MONOCYTES % (AUTO) 6 % (2-9); NEUTROPHILS # (AUTO) 6.98 x10^3/uL (1.8-6.8); NEUTROPHILS % (AUTO) 81 % (42-75); PLATELET COUNT 183 x10^3/uL (130-400); RED CELL DISTRIBUTION WIDTH 15.3 % (9.6-15.2)
[2019-05-22 07:14] VITALS: BP 92/55
[2019-05-22] MEDS: DULOXETINE 30 MG CAPSULE.DR PO SCH (09:25)
[2019-05-22] MEDS: SENNA/DOCUSATE TABLET PO SCH (09:26)
[2019-05-22 13:35] VITALS: BP 97/58
[2019-05-22] MEDS: OXYcodone IR 5MG TABLET PO PRN ×2 (14:39→21:50)
[2019-05-22 19:22] VITALS: BP 97/58
[2019-05-22 21:39] VITALS: BP 98/62
[2019-05-23] MEDS: VANCOMYCIN 1,200 MG in SODIUM CHLORIDE 0.9% 250 ML IV SCH (00:36)
[2019-05-23 01:38] VITALS: BP 105/63
[2019-05-23 07:16] VITALS: BP 94/56
[2019-05-23] MEDS: SENNA/DOCUSATE TABLET PO SCH (09:00)
[2019-05-23] MEDS: DULOXETINE 30 MG CAPSULE.DR PO SCH (11:20)
[2019-05-23] MEDS: OXYcodone IR 5MG TABLET PO PRN ×2 (11:59→20:39)
[2019-05-23 13:50] VITALS: BP 102/62
[2019-05-23] MEDS: DAPTOMYCIN 450 MG in SODIUM CHLORIDE 0.9% 100 ML IVPB SCH (13:51)
[2019-05-23 20:29] VITALS: BP 111/67
[2019-05-24 03:09] VITALS: BP 110/71
[2019-05-24] MEDS: OXYcodone IR 5MG TABLET PO PRN ×4 (03:11→21:28)
[2019-05-24 07:43] VITALS: BP 110/69
[2019-05-24] MEDS: DULOXETINE 30 MG CAPSULE.DR PO SCH (08:45)
[2019-05-24] MEDS: SENNA/DOCUSATE TABLET PO SCH (08:45)
[2019-05-24] MEDS: ACETAMINOPHEN 325 MG TABLET PO PRN (13:00)
[2019-05-24 13:49] VITALS: BP 98/66
[2019-05-24] MEDS: DAPTOMYCIN 450 MG in SODIUM CHLORIDE 0.9% 100 ML IVPB SCH (14:32)
[2019-05-24 19:24] VITALS: BP 91/56
[2019-05-24] MEDS ORDERED: OMNIPAQUE 350 MG/ML, 100ML BOTTLE ONE (20:50)
[2019-05-25 01:29] VITALS: BP 91/51
[2019-05-25 08:04] VITALS: BP 101/66
[2019-05-25] MEDS: SENNA/DOCUSATE TABLET PO SCH (09:44)
[2019-05-25] MEDS: OXYcodone IR 5MG TABLET PO PRN ×3 (09:45→23:47)
[2019-05-25] MEDS: DULOXETINE 30 MG CAPSULE.DR PO SCH (09:45)
[2019-05-25] MEDS: ACETAMINOPHEN 325 MG TABLET PO PRN ×2 (12:32→20:07)
[2019-05-25] MEDS: DAPTOMYCIN 450 MG in SODIUM CHLORIDE 0.9% 100 ML IVPB SCH (13:21)
[2019-05-25 13:31] VITALS: BP 97/61
[2019-05-25 18:21] VITALS: BP 102/55
[2019-05-26 00:13] VITALS: BP 96/50
[2019-05-26 08:04] VITALS: BP 98/61
[2019-05-26] MEDS: DULOXETINE 30 MG CAPSULE.DR PO SCH (09:58)
[2019-05-26] MEDS: ACETAMINOPHEN 325 MG TABLET PO PRN ×2 (09:59→20:03)
[2019-05-26] MEDS: SENNA/DOCUSATE TABLET PO SCH (10:00)
[2019-05-26 12:40] VITALS: BP 95/59
[2019-05-26] MEDS ORDERED: OXYcodone 5 MG/5 ML ORAL.SOL UDC ONE (12:46)
[2019-05-26] MEDS: OXYcodone IR 5MG TABLET PO PRN ×2 (12:58→23:58)
[2019-05-26] MEDS: DAPTOMYCIN 450 MG in SODIUM CHLORIDE 0.9% 100 ML IVPB SCH (13:42)
[2019-05-26] MEDS: NYSTATIN 500,000 UNITS/5 ML UDC PO SCH ×2 (16:42→20:03)
[2019-05-26 18:34] VITALS: BP 104/62
[2019-05-27 00:40] VITALS: BP 104/52
[2019-05-27] MEDS: NYSTATIN 500,000 UNITS/5 ML UDC PO SCH ×3 (05:32→15:21)
[2019-05-27] MEDS: ACETAMINOPHEN 325 MG TABLET PO PRN ×2 (05:41→12:31)
[2019-05-27 06:53] VITALS: BP 97/52
[2019-05-27] MEDS: SENNA/DOCUSATE TABLET PO SCH (09:00)
[2019-05-27] MEDS: DULOXETINE 30 MG CAPSULE.DR PO SCH (09:02)
[2019-05-27] MEDS: OXYcodone IR 5MG TABLET PO PRN ×2 (09:02→13:40)
[2019-05-27 13:39] VITALS: BP 105/62
[2019-05-27] MEDS: DAPTOMYCIN 450 MG in SODIUM CHLORIDE 0.9% 100 ML IVPB SCH (13:41)
[2019-05-27] MEDS ORDERED: DAPT350V IV ×2 (14:58→15:30)
[2019-05-27] MEDS ORDERED: ONDA4TAB13 PO (14:58)
[2019-05-27] MEDS ORDERED: POLY17PO5 PO (14:58)
[2019-05-27] MEDS ORDERED: OXYC5TAB3 PO (14:58)
[2019-05-27] MEDS ORDERED: NYST1000 PO (14:58)
== END 2019-05-27 16:44 | DRG 854 ==
LOC: ED 22:04 → EDIP 23:32 → 4NW 05-20 01:37
PROVIDERS: ADMIT Internal Medicine; ATTEND Internal Medicine
PROC: 0J950ZZ Drainage of Left Neck Subcutaneous Tissue and Fascia, Open Approach (ICD-10-PCS; principal; 2019-05-20 17:30)
PROC: 02HV33Z Insertion of Infusion Device into Superior Vena Cava, Percutaneous Approach (ICD-10-PCS; 2019-05-24)
PROC: B5181ZA Fluoroscopy of Superior Vena Cava using Low Osmolar Contrast, Guidance (ICD-10-PCS; 2019-05-24)
PROC: B548ZZA Ultrasonography of Superior Vena Cava, Guidance (ICD-10-PCS; 2019-05-24)
DX: A41.02 Sepsis due to Methicillin resistant Staphylococcus aureus (principal); E87.2 Acidosis; F11.20 Opioid dependence, uncomplicated; J39.0 Retropharyngeal and parapharyngeal abscess; L02.11 Cutaneous abscess of neck; B18.2 Chronic viral hepatitis C; D64.9 Anemia, unspecified; E55.9 Vitamin D deficiency, unspecified; E87.6 Hypokalemia; F10.20 Alcohol dependence, uncomplicated; F17.200 Nicotine dependence, unspecified, uncomplicated; F32.9 Major depressive disorder, single episode, unspecified; J44.9 Chronic obstructive pulmonary disease, unspecified; K70.30 Alcoholic cirrhosis of liver without ascites; M40.209 Unspecified kyphosis, site unspecified; R50.82 Postprocedural fever; Z66 Do not resuscitate; Z59.0 Homelessness; Z79.2 Long term (current) use of antibiotics; Z96.641 Presence of right artificial hip joint; Z98.1 Arthrodesis status
CPT/HCPCS: 36415; 36573; 70491; 70543; 72052; 74178; 80048; 80053; 80202; 80307; 82272; 82550; 82607; 82728; 83540; 83550; 83605; 84145; 84443; 85025; 85610; 85651; 85730; 86140; 87040; 87070; 87075; 87077; 87186; 87205; 93306; 97162; 97165; 97530; 99285; A9575; C1751; J0878; J1100; J1335; J2270; J2405; J2704; J3010; J3370; J3480; J7030; J7050; Q0162; Q9967; G0378

== ENCOUNTER 2019-08-08 22:53 | Inpatient (IN) | payer MEDICAID ==
[~2019-08-08] VITALS: Ht 162.6 cm; Wt 82.0 kg
[~2019-08-08 22:53] MED LIST changes: +DAPT350V IV; +DEXT10TA7 PO; +DULO60CA7 PO; +NYST1000 PO; +ONDA4TAB13 PO; +OXYC5TAB3 PO; +TRAZ-175 PO
--- NOTE | 2019-08-08 23:16 | NUR ---
Xray of ankle completed, patient provided with remote for television. Awaiting for radiology read.
[2019-08-08] MEDS ORDERED: THIAMINE 100MG TABLET ONE (23:30)
[2019-08-08] MEDS ORDERED: FOLIC ACID 1 MG TABLET PO ONE (23:30)
[2019-08-08] MEDS ORDERED: THIAMINE 100MG TABLET PO ONE (23:30)
[2019-08-08] MEDS ORDERED: ACETAMINOPHEN 325 MG TABLET ONE (23:35)
[2019-08-09] MEDS ORDERED: ACETAMINOPHEN 325 MG TABLET PO ONE
[2019-08-09] MEDS ORDERED: DOXY-162 PO (01:55)
[2019-08-09] MEDS ORDERED: ALBU0.63 NEB (01:57)
[2019-08-09] MEDS ORDERED: ONDANSETRON 2MG/ML, 2ML IVPush PRN (04:00)
[2019-08-09] MEDS ORDERED: hydrALAzine 20 MG/ML, 1ML IVPush PRN (04:00)
[2019-08-09] MEDS ORDERED: ALBUTEROL SULFATE 2.5 MG/3 ML NPPB PRN (04:00)
[2019-08-09] MEDS ORDERED: PROMETHAZINE 25 MG/ML, 1ML IM PRN (04:00)
[2019-08-09 04:21] VITALS: BP 115/64
[2019-08-09] MEDS: morphine SULFATE 10 MG/ML, 1ML IVPush PRN ×5 (05:09→22:50)
[2019-08-09 05:39] LABS: INTERNATIONAL NORMALIZED RATIO 1.15 (0.93-1.1); PROTHROMBIN TIME 12.2 Seconds (9.6-11.5)
[2019-08-09 05:42] LABS: CHLORIDE 112 mmol/L (98-107)
[2019-08-09 05:50] LABS: ALANINE AMINOTRANSFERASE 27 U/L (12-78); ALBUMIN 2.6 g/dL (3.4-5.0); ALKALINE PHOSPHATASE 128 U/L (45-117); ANION GAP 6 mmol/L (5-15); BILIRUBIN,TOTAL 1.8 mg/dL (0.2-1.0); CALCIUM 8.2 mg/dL (8.5-10.1); CREATININE 0.51 mg/dL (0.55-1.02); TOTAL PROTEIN 6.4 g/dL (6.4-8.2)
[2019-08-09 06:06] LABS: BASOPHILS # (AUTO) 0.02 x10^3/uL (0-0.1); BASOPHILS % (AUTO) 0 % (0-1); EOSINOPHILS # (AUTO) 0.14 x10^3/uL (0-0.4); EOSINOPHILS % (AUTO) 3 % (1-7); LYMPHOCYTES # (AUTO) 1.19 x10^3/uL (1-3.4); LYMPHOCYTES % (AUTO) 29 % (22-44); MD SCAN; MEAN CORPUSCULAR HEMOGLOBIN 30.9 pg (27.0-34.8); MEAN CORPUSCULAR HGB CONC 34.1 g/dL (32.4-35.8); MEAN CORPUSCULAR VOLUME 90.7 fL (80-100); MEAN PLATELET VOLUME 9.2 fL (7.4-10.4); MONOCYTES # (AUTO) 0.49 x10^3/uL (0.2-0.8); MONOCYTES % (AUTO) 12 % (2-9); NEUTROPHILS # (AUTO) 2.26 x10^3/uL (1.8-6.8); NEUTROPHILS % (AUTO) 55 % (42-75); PLATELET COUNT 93 x10^3/uL (130-400); RED BLOOD COUNT 3.71 x10^6/uL (3.82-5.3); RED CELL DISTRIBUTION WIDTH 14.5 % (9.6-15.2)
[2019-08-09 06:45] VITALS: BP 114/64
[2019-08-09] MEDS ORDERED: POTASSIUM CHLORIDE 20 MEQ in SODIUM CHLORIDE 0.9% 250 ML IV ONE (08:30)
[2019-08-09] MEDS ORDERED: CALCIUM GLUCONATE 4.6 MEQ in SODIUM CHLORIDE 0.9% 100 ML IV ONE (08:30)
[2019-08-09] MEDS ORDERED: DOXYCYCLINE HYCLATE PO SCH (09:00)
[2019-08-09] MEDS ORDERED: DOXYCYCLINE 100MG TABLET ONE ×2 (09:01→20:10)
[2019-08-09] MEDS: MULTIVITAMIN 1 TABLET PO SCH (09:06)
[2019-08-09] MEDS: DULOXETINE 30 MG CAPSULE.DR PO SCH (09:06)
[2019-08-09] MEDS: SENNA/DOCUSATE TABLET PO SCH (09:07)
[2019-08-09] MEDS: TEMPLATE NON-FORMULARY MED. (Doxycycline Hyclate** 100 MG) PO SCH ×2 (09:07→20:14)
[2019-08-09 14:10] VITALS: BP 118/72
[2019-08-09 19:29] VITALS: BP 137/74
[2019-08-10 01:08] VITALS: BP 122/66
[2019-08-10] MEDS: morphine SULFATE 10 MG/ML, 1ML IVPush PRN ×2 (03:16→08:13)
[2019-08-10 06:54] VITALS: BP 109/70
[2019-08-10] MEDS: GABAPENTIN 300 MG CAPSULE PO PRN ×2 (08:12→16:55)
[2019-08-10] MEDS: DOXYCYCLINE 100MG TABLET PO SCH ×2 (08:13→21:25)
[2019-08-10] MEDS: MULTIVITAMIN 1 TABLET PO SCH (08:13)
[2019-08-10] MEDS: DULOXETINE 30 MG CAPSULE.DR PO SCH (08:13)
[2019-08-10] MEDS: SENNA/DOCUSATE TABLET PO SCH (08:13)
[2019-08-10 12:37] VITALS: BP 112/67
[2019-08-10] MEDS: OXYcodone/APAP 5/325MG TABLET PO PRN ×2 (12:44→18:59)
[2019-08-10] MEDS ORDERED: OXYC10TA47 PO (13:03)
[2019-08-10] MEDS ORDERED: DOCU-131 PO (13:04)
[2019-08-10 19:16] VITALS: BP 99/52
[2019-08-11] MEDS: OXYcodone/APAP 5/325MG TABLET PO PRN ×4 (01:21→19:32)
[2019-08-11 01:28] VITALS: BP 96/49
[2019-08-11 06:38] VITALS: BP 102/53
[2019-08-11] MEDS: MULTIVITAMIN 1 TABLET PO SCH (08:03)
[2019-08-11] MEDS: SENNA/DOCUSATE TABLET PO SCH (08:03)
[2019-08-11] MEDS: DOXYCYCLINE 100MG TABLET PO SCH ×2 (08:03→19:32)
[2019-08-11] MEDS: DULOXETINE 30 MG CAPSULE.DR PO SCH (08:09)
[2019-08-11 12:38] VITALS: BP 91/43
[2019-08-11 13:27] VITALS: BP 108/50
[2019-08-11 19:32] VITALS: BP 107/54
[2019-08-12 00:50] VITALS: BP 98/43
[2019-08-12] MEDS: OXYcodone/APAP 5/325MG TABLET PO PRN ×4 (01:04→18:56)
[2019-08-12 06:41] VITALS: BP 93/51
[2019-08-12] MEDS: DULOXETINE 30 MG CAPSULE.DR PO SCH (08:52)
[2019-08-12] MEDS: DOXYCYCLINE 100MG TABLET PO SCH ×2 (08:53→18:56)
[2019-08-12] MEDS: MULTIVITAMIN 1 TABLET PO SCH (08:53)
[2019-08-12] MEDS: SENNA/DOCUSATE TABLET PO SCH (08:53)
[2019-08-12 13:12] VITALS: BP 96/55
[2019-08-12 19:17] VITALS: BP 111/53
[2019-08-13 01:01] VITALS: BP 107/61
[2019-08-13] MEDS: OXYcodone/APAP 5/325MG TABLET PO PRN ×3 (01:10→13:51)
[2019-08-13 06:34] VITALS: BP 99/60
[2019-08-13] MEDS: DULOXETINE 30 MG CAPSULE.DR PO SCH (08:39)
[2019-08-13] MEDS: DOXYCYCLINE 100MG TABLET PO SCH (08:39)
[2019-08-13] MEDS: SENNA/DOCUSATE TABLET PO SCH (08:39)
[2019-08-13] MEDS: MULTIVITAMIN 1 TABLET PO SCH (08:39)
[2019-08-13 15:00] VITALS: BP 101/60
[2019-08-13 16:30] VITALS: BP 112/52
== END 2019-08-13 17:05 | DRG 563 ==
LOC: ED 08-09 02:06 → EDIP 08-09 03:46 → 4NW 08-09 03:50 → 4NE 08-09 20:13
PROVIDERS: ADMIT Family Medicine; ATTEND Family Medicine
PROC: 2W3LX1Z Immobilization of Right Lower Extremity using Splint (ICD-10-PCS; principal; 2019-08-09)
DX: S82.844A Nondisplaced bimalleolar fracture of right lower leg, initial encounter for closed fracture (principal); B18.2 Chronic viral hepatitis C; F51.04 Psychophysiologic insomnia; J44.9 Chronic obstructive pulmonary disease, unspecified; K70.9 Alcoholic liver disease, unspecified; K74.60 Unspecified cirrhosis of liver; R53.81 Other malaise; E55.9 Vitamin D deficiency, unspecified; Z98.1 Arthrodesis status; F32.9 Major depressive disorder, single episode, unspecified; F10.229 Alcohol dependence with intoxication, unspecified; F17.210 Nicotine dependence, cigarettes, uncomplicated; W01.0XXA Fall on same level from slipping, tripping and stumbling without subsequent striking against object, initial encounter; Y99.8 Other external cause status; Y93.01 Activity, walking, marching and hiking; Y92.488 Other paved roadways as the place of occurrence of the external cause
CPT/HCPCS: 29515; 36415; 80053; 85025; 85610; 96374; 96375; 99285; G0378; J0610; J3480; J2270; J7050

== ENCOUNTER 2019-08-15 15:27 | Emergency (ER) | payer MEDICAID ==
[~2019-08-15] VITALS: Ht 165.1 cm; Wt 73.0 kg
[~2019-08-15 15:27] MED LIST changes: +ALBU0.63 NEB; +DOCU-131 PO; +DOXY-162 PO; +OXYC10TA47 PO
[2019-08-15 15:53] VITALS: BP 132/67
[2019-08-15] MEDS ORDERED: DOXYCYCLINE 100MG TABLET PO ONE (16:00)
[2019-08-15] MEDS ORDERED: OXYcodone/APAP 10/325MG TABLET PO ONE (16:00)
[2019-08-15] MEDS ORDERED: PLEASE ENTER HEIGHT AND WEIGHT MC SCH (16:00)
[2019-08-15] MEDS ORDERED: DOXYCYCLINE 100MG TABLET ONE (16:03)
[2019-08-15] MEDS ORDERED: OXYcodone/APAP 10/325MG TABLET ONE (16:03)
--- NOTE | 2019-08-15 16:12 | NUR ---
pt brought in by ems to decontamination, to rule out bed bugs. pt stripped, cast that was in place on arrival was removed, no bed bugs seen. pt had been showered at sending facility and transported immediately after, arrived hair still wet. pt brought to room, dr. hatch at bedside, new splint ordered. tech at bedside to apply splint, pt conversing entire time, tolerated well.
== END 2019-08-15 17:05 | disposition home or self-care (01) ==
LOC: ED 16:40
DX: S90.01XA Contusion of right ankle, initial encounter (principal); J44.9 Chronic obstructive pulmonary disease, unspecified; G89.29 Other chronic pain; F17.200 Nicotine dependence, unspecified, uncomplicated; W18.39XA Other fall on same level, initial encounter; Y93.89 Activity, other specified; Y92.89 Other specified places as the place of occurrence of the external cause; Y99.8 Other external cause status
CPT/HCPCS: 29505; 99283

== ENCOUNTER 2019-08-24 10:03 | Day surgery (SDC) | payer MEDICAID ==
[~2019-08-24] VITALS: Ht 162.6 cm; Wt 73.5 kg
[2019-08-24] MEDS ORDERED: LACTATED RINGERS 1,000 ML IV ONE (10:46)
[2019-08-24] MEDS ORDERED: PLEASE ENTER HEIGHT AND WEIGHT MC SCH (11:00)
[2019-08-24 11:08] VITALS: BP 117/75
[2019-08-24] MEDS ORDERED: OXYC10TA47 PO (11:23)
[2019-08-24] MEDS ORDERED: FLUT1DIS3 INH (11:23)
[2019-08-24] MEDS ORDERED: MULT-316 PO (11:23)
[2019-08-24] MEDS ORDERED: OXYC5CAP2 PO (11:23)
[2019-08-24 12:33] LABS: BASOPHILS # (AUTO) 0.01 x10^3/uL (0-0.1); BASOPHILS % (AUTO) 0 % (0-1); EOSINOPHILS # (AUTO) 0.18 x10^3/uL (0-0.4); EOSINOPHILS % (AUTO) 6 % (1-7); LYMPHOCYTES # (AUTO) 0.58 x10^3/uL (1-3.4); LYMPHOCYTES % (AUTO) 18 % (22-44); MD SCAN; MEAN CORPUSCULAR HEMOGLOBIN 30.6 pg (27.0-34.8); MEAN CORPUSCULAR HGB CONC 33.7 g/dL (32.4-35.8); MEAN CORPUSCULAR VOLUME 90.8 fL (80-100); MEAN PLATELET VOLUME 9.7 fL (7.4-10.4); MONOCYTES # (AUTO) 0.38 x10^3/uL (0.2-0.8); MONOCYTES % (AUTO) 12 % (2-9); NEUTROPHILS # (AUTO) 2.01 x10^3/uL (1.8-6.8); NEUTROPHILS % (AUTO) 64 % (42-75); PLATELET COUNT 107 x10^3/uL (130-400); RED BLOOD COUNT 3.64 x10^6/uL (3.82-5.3); RED CELL DISTRIBUTION WIDTH 15.2 % (9.6-15.2)
[2019-08-24] MEDS ORDERED: MIDAZOLAM 1 MG/ML, 2ML ONE (12:36)
[2019-08-24] MEDS ORDERED: FENTANYL PF 250 MCG/5ML ONE (12:37)
[2019-08-24] MEDS ORDERED: BUPIVACAINE/PF-EPI 0.5% 1:200K ONE ×2 (12:39→14:10)
[2019-08-24] MEDS ORDERED: LABETALOL 5MG/ML, 20ML IV PRN (14:00)
[2019-08-24] MEDS ORDERED: DIAZEPAM 5 MG/ML, 2ML IVPush PRN (14:00)
[2019-08-24] MEDS ORDERED: FENTANYL PF 100 MCG/2ML IV PRN (14:00)
[2019-08-24] MEDS ORDERED: PROMETHAZINE 25 MG/ML, 1ML IV PRN (14:00)
[2019-08-24] MEDS ORDERED: HYDROmorphone 2 MG/ML, 1ML IVPush PRN (14:00)
[2019-08-24] MEDS ORDERED: hydrALAzine 20 MG/ML, 1ML IV PRN (14:00)
[2019-08-24] MEDS ORDERED: ALBUTEROL SULFATE 2.5 MG/3 ML NPPB PRN (14:00)
[2019-08-24] MEDS ORDERED: OXYcodone 5 MG/5 ML ORAL.SOL UDC PO PRN (14:00)
[2019-08-24] MEDS ORDERED: KETOROLAC 30 MG/1 ML IV PRN (14:00)
[2019-08-24] MEDS ORDERED: MEPERIDINE/PF 25MG/0.5ML IVPush PRN (14:00)
[2019-08-24] MEDS ORDERED: ONDANSETRON 2MG/ML, 2ML ONE (14:14)
[2019-08-24] MEDS ORDERED: CEFAZOLIN 1,000 MG ONE (14:14)
[2019-08-24] MEDS ORDERED: PROPOFOL 10 MG/ML, 20ML ONE (14:14)
[2019-08-24] MEDS ORDERED: DEXAMETHASONE 4 MG/ML, 1ML ONE (14:14)
[2019-08-24] MEDS ORDERED: OXYcodone 5 MG/5 ML ORAL.SOL UDC ONE (15:18)
== END 2019-08-24 16:10 | disposition home or self-care (01) ==
LOC: OUT 10:03
PROVIDERS: ATTEND Orthopaedic Surgery
DX: S82.841A Displaced bimalleolar fracture of right lower leg, initial encounter for closed fracture (principal); S93.491A Sprain of other ligament of right ankle, initial encounter; J44.9 Chronic obstructive pulmonary disease, unspecified; I85.00 Esophageal varices without bleeding; B19.20 Unspecified viral hepatitis C without hepatic coma; M48.00 Spinal stenosis, site unspecified; Z79.899 Other long term (current) drug therapy; Z87.891 Personal history of nicotine dependence; Z88.1 Allergy status to other antibiotic agents; Z88.6 Allergy status to analgesic agent; X58.XXXA Exposure to other specified factors, initial encounter; Y93.89 Activity, other specified; Y92.89 Other specified places as the place of occurrence of the external cause; Y99.8 Other external cause status
CPT/HCPCS: 27814; 27829; 36415; 64445; 64447; 73600; 85025; 93005; C1713; J0690; J1100; J2250; J2405; J2704; J3010; 76000

== ENCOUNTER 2019-10-26 19:50 | Emergency (ER) | payer MEDICAID ==
[~2019-10-26] VITALS: Ht 160 cm; Wt 68.0 kg
[~2019-10-26 19:50] MED LIST changes: +MULT-316 PO; +OXYC5CAP2 PO
--- NOTE | 2019-10-26 20:04 | NUR ---
PT PRESENTS TO ED PER EMS AFTER GLF AROUND 1300 TODAY. REPORTS SHE FELL TRYING TO GO TO THE BATHROOM AND HIT HER NOSE AND RIGHT SHOULDER. REPORTS SHE WENT TO BED RIGHT AFTER THIS AND THEN WOKE UP IN PAIN AND CALLED EMS. REPORTS NPO AROUND 1300.
[2019-10-26] MEDS ORDERED: OXYcodone/APAP 5/325MG TABLET ONE (20:51)
[2019-10-26] MEDS ORDERED: OXYcodone/APAP 5/325MG TABLET PO ONE (21:00)
--- NOTE | 2019-10-26 21:05 | NUR ---
SLING APPLIED TO RIGHT SHOULDER, COTTON PADDING AND DIEGO WRAP ON RIGHT LOWER LEG SPLINT REPLACED. PERCOCET GIVEN FOR PAIN. AWAITING DC PAPERS.
[2019-10-26 21:32] VITALS: BP 126/72
== END 2019-10-26 21:34 | disposition home or self-care (01) ==
LOC: ED 20:50
DX: S42.201A Unspecified fracture of upper end of right humerus, initial encounter for closed fracture (principal); J44.9 Chronic obstructive pulmonary disease, unspecified; F17.200 Nicotine dependence, unspecified, uncomplicated; W01.0XXA Fall on same level from slipping, tripping and stumbling without subsequent striking against object, initial encounter; Y93.89 Activity, other specified; Y92.098 Other place in other non-institutional residence as the place of occurrence of the external cause; Y99.8 Other external cause status
CPT/HCPCS: 99283